=== PATIENT | female | born 1970 | race Caucasian/White ===

== ENCOUNTER → 2016-08-17 | Outpatient (CLI) | payer BC ==
--- NOTE | 2016-08-17 09:23 | CT ---
EXAMINATION TYPE: CT abdomen pelvis w con DATE OF EXAM: 08/17/2016 8:37 AM HISTORY: Patient has no complaints at time of service. Follow up study for history of cervical CA. CT DLP: 1633mGycm Automated Exposure Control for Dose Reduction was Utilized. CONTRAST: CT scan of the abdomen and pelvis is performed with oral and with IV Contrast, patient injected with 100 mL of Omnipaque 300. COMPARISON: CT abdomen pelvis November 11, 2015 FINDINGS: LUNG BASES: Some scarring or atelectatic change involving the right middle lobe near diaphragm is red emonstrated. LIVER/GB: Liver remains diffusely low dense consistent with fatty infiltration. PANCREAS: No significant abnormality is seen. SPLEEN: No significant abnormality is seen. ADRENALS: No significant abnormality is seen. KIDNEYS: No significant abnormality is seen. BOWEL: The oral contrast does not reach colonic level making evaluation slightly suboptimal. There is no suspicious small or large bowel dilatation seen. Normal-appearing appendix is seen from cecum. UTERUS/ADNEXA: Uterus is surgically absent. No new suspicious soft tissue mass is identified. There i s interval resolution of cystic lesion left adnexa/ovary consistent with resolved follicular cyst. Th ere is now 1.5 cm cystic change in right ovary on axial image 68 likely reflecting prominent follicle . LYMPH NODES: No greater than 1cm abdominal or pelvic lymph nodes are appreciated. OSSEOUS STRUCTURES: No significant abnormality is seen. OTHER: A few scattered pelvic phleboliths are redemonstrated. IMPRESSION: No new suspicious mass or adenopathy is seen to suggest neoplastic recurrence.
== END | disposition home or self-care (01) ==
LOC: RADCTMAIN 08:19
PROVIDERS: ATTEND Internal Medicine Hematology & Oncology
DX: C53.0 Malignant neoplasm of endocervix (principal)
CPT/HCPCS: 74177; Q9967

== ENCOUNTER → 2017-09-08 | Outpatient (CLI) | payer BC ==
--- NOTE | 2017-09-08 11:36 | CT ---
EXAMINATION TYPE: CT abdomen pelvis w con DATE OF EXAM: 09/08/2017 HISTORY: Endocervical carcinoma. CT DLP: 1633 mGycm Automated Exposure Control for Dose Reduction was Utilized. CONTRAST: CT scan of the abdomen and pelvis is performed with IV Contrast, patient injected with 100 mL of Omni paque 300. COMPARISON: 08/17/2016 FINDINGS: LUNG BASES: Minimal subpleural right middle lobe atelectasis and right lower lung medially atelectasi s are noted. No pulmonary masses are seen. LIVER/GB: Although the liver appears hypoattenuating diffusely does not meet diagnostic criteria for hepatic steatosis. Gallbladder is unremarkable. PANCREAS: No significant abnormality is seen. No ductal dilatation. SPLEEN: No significant abnormality is seen. No splenomegaly. ADRENALS: No significant abnormality is seen. No adrenal nodules. KIDNEYS: Kidneys enhance symmetrically. BOWEL: Bowel is nondilated. Appendix is within normal limits. UTERUS/ADNEXA: Follicular changes of the right ovary, small in size and on the prior exam of 08/17/2016. Left ovary is unremarkable. Uterus is surgically absent as is the cervix. Vaginal cuff is unremarkable. No new pel gildardo soft tissue mass or adenopathy is appreciated. LYMPH NODES: No greater than 1cm abdominal or pelvic lymph nodes are appreciated. OSSEOUS STRUCTURES: Minimal multilevel degenerative changes of the visualized thoracic or lumbar spin e are noted. IMPRESSION: No evidence of visceral metastasis, osseous metastasis or adenopathy within the abdomen o r pelvis.
== END | disposition home or self-care (01) ==
LOC: RADCTMAIN 07:29
PROVIDERS: ATTEND Internal Medicine Hematology & Oncology
DX: C53.0 Malignant neoplasm of endocervix (principal)
CPT/HCPCS: 74177; Q9967

== ENCOUNTER → 2018-02-21 | Outpatient (CLI) | payer BC ==
--- NOTE | 2018-02-21 13:29 | US ---
EXAMINATION TYPE: US venous doppler duplex LE RT DATE OF EXAM: 02/21/2018 1:15 PM COMPARISON: NONE CLINICAL HISTORY: Rt leg Pain M79.604. Right leg tingling, patient takes blood thinners SIDE PERFORMED: Right TECHNIQUE: The lower extremity deep venous system is examined utilizing real time linear array sonog lainey with graded compression, doppler sonography and color-flow sonography. VESSELS IMAGED: External Iliac Vein (EIV) Common Femoral Vein Deep Femoral Vein Greater Saphenous Vein * Femoral Vein Popliteal Vein Small Saphenous Vein * Proximal Calf Veins (* superficial vessels) Grayscale, color doppler, spectral doppler imaging performed of the deep veins of the right lower ext remity. There is normal flow, compressibility, vascular waveforms. Right Leg: Negative for DVT IMPRESSION: No sonographic evidence of deep venous thrombosis within the right lower extremity.
== END | disposition home or self-care (01) ==
LOC: RADUSWWP 12:43
PROVIDERS: ATTEND Pediatrics
DX: M79.604 Pain in right leg (principal)

== ENCOUNTER 2018-03-11 11:23 | Emergency (ER) | payer BC ==
[2018-03-11] MEDS ORDERED: METHOCARBAMOL 500 MG TAB PO STA (12:15)
[2018-03-11] MEDS ORDERED: KETOROLAC 30 MG/ML 1 ML VIAL IVP STA (12:15)
--- NOTE | 2018-03-11 12:19 | ED ---
Extremity Problem HPI - General Chief complaint: Extremity Problem,Nontraumatic Stated complaint: Hip to leg pain Time Seen by Provider: 03/11/18 12:06 Source: patient Mode of arrival: wheelchair Limitations: no limitations - History of Present Illness Initial comments: This is a 47-year-old female with a history of DVT on Zarrella toe who presents emergency department for left lower extremity pain. She states it started yesterday and has gradually worsened. She describes it as a burning and cramping sensation that starts in her left groin and then radiates down into her leg. She states that she did have a fall a few days ago where she stretched that leg to the side. She states that she's also been having some leg pain in the right leg. This is been going on for the last month. She is seen her primary doctor for it who started her on Neurontin however states that it has not helped. She states that the left leg is much worse than the right however. She denies any back pain however does have a history of sciatica. Also admits to some tingling in her fingertips at times. She denies any weakness or tingling in her lower extremity. She denies any other acute complaints. - Related Data Home Medications Medication Instructions Recorded Confirmed Acetaminophen Tab [Tylenol] 1,000 mg PO Q6HR PRN 12/31/15 03/11/18 Rivaroxaban [Xarelto] 20 mg PO HS 12/31/15 03/11/18 Gabapentin [Neurontin] 100 mg PO BID 03/11/18 03/11/18 Hydrochlorothiazide [Hydrodiuril] 25 mg PO DAILY 03/11/18 03/11/18 Pantoprazole Sodium [Protonix] 40 mg PO DAILY 03/11/18 03/11/18 Previous Rx's Medication Instructions Recorded traMADol HCL [Ultram] 50 mg PO TID 3 Days #9 tab 03/11/18 Allergies Allergy/AdvReac Type Severity Reaction Status Date / Time hydrocodone bitartrate AdvReac Nausea & Verified 03/11/18 12:00 [From Vicodin] Vomiting Review of Systems ROS Statement: Those systems with pertinent positive or pertinent negative responses have been documented in the HPI. ROS Other: All systems not noted in ROS Statement are negative. Past Medical History Past Medical History: GERD/Reflux, Pulmonary Embolus (PE), Thyroid Disorder Additional Past Medical History / Comment(s): DVT, states clotting disorder - does not know name History of Any Multi-Drug Resistant Organisms: None Reported Past Surgical History: Hysterectomy Additional Past Surgical History / Comment(s): ganglion cyst removed from right wrist Past Anesthesia/Blood Transfusion Reactions: No Reported Reaction Past Psychological History: No Psychological Hx Reported Smoking Status: Never smoker Past Alcohol Use History: Occasional Past Drug Use History: None Reported - Past Family History Father Additional Family Medical History / Comment(s): in MVA - no medical problems Mother Family Medical History: Congestive Heart Failure (CHF), COPD, Diabetes Mellitus Additional Family Medical History / Comment(s): has pacer - had heart block. short gut syndrom General Exam - General Exam Comments Initial Comments: Constitutional: [Awake alert] appears uncomfortable Head: [Normocephalic atraumatic] Eyes: [no conjunctival injection] [No scleral icterus] [EOMI] Neck: [No JVD] [Supple] Heart: [Regular rate rhythm] [normal S1-S2] [no murmurs] Lungs: [Clear to auscultation bilaterally] [No wheezing] [No rales] Abdomen: [Soft] [nondistended] [nontender] Extremities: [Non edematous] [DP pulses intact] [Radial pulses intact], femoral pulses intact bilaterally, patient has tenderness to palpation the left inguinal region and along the medial left thigh. Neurovascularly intact distally. No back pain Neuro: [A&Ox3] [No focal neurologic deficits] Psych: [Appropriate mood and affect] Limitations: no limitations Course Vital Signs 03/11/18 11:47 Temperature 97.7 F Pulse Rate 83 Respiratory 18 Rate Blood Pressure 123/87 O2 Sat by Pulse 95 Oximetry Medical Decision Making - Medical Decision Making This is a 47-year-old female who presents emergency department for left lower extremity pain. The patient had Dopplers and x-rays performed that were unremarkable. Patient's pain was improved after a tramadol emergency department. At this time I feel the patient's pain is likely neuropathic in origin however she needs further workup through her primary doctor. Told to return the emergency Department should worsening or changing symptoms. Otherwise she'll be given tramadol for home and told to follow-up with her primary doctor for further testing such as an MRI or an EMG. All questions were answered. - Lab Data Result diagrams: 03/11/18 12:25 03/11/18 12:25 Lab Results 03/11/18 03/11/18 03/11/18 Range/Units 12:25 12:25 12:25 WBC 6.1 (3.8-10.6) k/uL RBC 4.51 (3.80-5.40) m/uL Hgb 13.5 (11.4-16.0) gm/dL Hct 42.1 (34.0-46.0) % MCV 93.3 (80.0-100.0) fL MCH 30.0 (25.0-35.0) pg MCHC 32.1 (31.0-37.0) g/dL RDW 13.0 (11.5-15.5) % Plt Count 296 (150-450) k/uL Neutrophils % 57 % Lymphocytes % 30 % Monocytes % 8 % Eosinophils % 2 % Basophils % 1 % Neutrophils # 3.5 (1.3-7.7) k/uL Lymphocytes # 1.8 (1.0-4.8) k/uL Monocytes # 0.5 (0-1.0) k/uL Eosinophils # 0.1 (0-0.7) k/uL Basophils # 0.0 (0-0.2) k/uL PT 9.6 (9.0-12.0) sec INR 1.0 (<1.2) APTT 24.4 (22.0-30.0) sec Sodium 140 (137-145) mmol/L Potassium 3.6 (3.5-5.1) mmol/L Chloride 106 (98-107) mmol/L Carbon Dioxide 27 (22-30) mmol/L Anion Gap 7 mmol/L BUN 15 (7-17) mg/dL Creatinine 0.70 (0.52-1.04) mg/dL Est GFR (CKD-EPI)AfAm >90 (>60 ml/min/1.73 sqM) Est GFR (CKD-EPI)NonAf >90 (>60 ml/min/1.73 sqM) Glucose 91 (74-99) mg/dL Calcium 9.4 (8.4-10.2) mg/dL Total Bilirubin 0.4 (0.2-1.3) mg/dL AST 32 (14-36) U/L ALT 54 H (9-52) U/L Alkaline Phosphatase 71 (38-126) U/L Total Protein 7.0 (6.3-8.2) g/dL Albumin 4.0 (3.5-5.0) g/dL Disposition Clinical Impression: Leg pain Disposition: HOME SELF-CARE Condition: Stable Instructions: Peripheral Neuropathy (ED) Prescriptions: traMADol HCL [Ultram] 50 mg PO TID 3 Days #9 tab Is patient prescribed a controlled substance at d/c from ED?: Yes When asked, does pt state using other controlled substances?: No If prescribed controlled substance>3 days was MAPS reviewed?: Prescribed <3 Days If opioid is for acute pain is fill amount 7 days or less?: Yes If Rx opioid, was Start Talking consent form obtained?: No Referrals: Yang Niño MD [Primary Care Provider] - 1-2 days
[2018-03-11 12:37] LABS: Basophils % (A) 1 %; Eosinophils # (A) 0.1 k/uL (0-0.7); Eosinophils % (A) 2 %; HCT 42.1 % (34.0-46.0); HGB 13.5 gm/dL (11.4-16.0); Lymphocytes # (A) 1.8 k/uL (1.0-4.8); Lymphocytes % (A) 30 %; MCHC 32.1 g/dL (31.0-37.0); MCV 93.3 fL (80.0-100.0); Mean Platelet Volume 6.6; Monocytes # (A) 0.5 k/uL (0-1.0); Monocytes % (A) 8 %; Neutrophils # (A) 3.5 k/uL (1.3-7.7); Neutrophils % (A) 57 %; Platelet Count 296 k/uL (150-450); RBC 4.51 m/uL (3.80-5.40); WBC 6.1 k/uL (3.8-10.6)
[2018-03-11 12:46] LABS: Partial Thromboplastin Time 24.4 sec (22.0-30.0); Prothrombin Time 9.6 sec (9.0-12.0)
[2018-03-11 12:52] LABS: ALT 54 U/L (9-52); AST 32 U/L (14-36); Alkaline Phosphatase 71 U/L (38-126); Anion Gap 7 mmol/L; Blood Urea Nitrogen 15 mg/dL (7-17); Calcium 9.4 mg/dL (8.4-10.2); Carbon Dioxide 27 mmol/L (22-30); Chloride 106 mmol/L (98-107); Glucose 91 mg/dL (74-99); Potassium 3.6 mmol/L (3.5-5.1); Sodium 140 mmol/L (137-145); Total Bilirubin 0.4 mg/dL (0.2-1.3)
--- NOTE | 2018-03-11 12:54 | XR ---
EXAMINATION TYPE: XR Hip LT and AP Pelvis DATE OF EXAM: 03/11/2018 COMPARISON: NONE HISTORY: Pain TECHNIQUE: A single AP view of the pelvis is obtained. Two views of the left hip are obtained. FINDINGS: There is no acute fracture/dislocation evident in the pelvis. Mild concentric narrowing of the hip joint bilaterally. There is mild disc sclerosis and arthritic change involving the SI joints bilaterally. No erosive changes. There is a intraosseous lesion involving the femoral neck of the ri ght femur may represent bone infarct or chondroid lesion measuring 2.5 cm. Calcifications in the pelvis are likely vascular. IMPRESSION: 1. Mild arthritic change involving the hip with no erosive changes. 2. Mild arthropathy of the SI joint. 3. Intraosseous lesion of the right femoral neck suggestive of bone infarct or chondroid lesion. Jcarlos mmend follow-up bone scan.
--- NOTE | 2018-03-11 14:03 | US ---
EXAMINATION TYPE: US venous doppler duplex LE BI DATE OF EXAM: 03/11/2018 12:16 PM COMPARISON: US CLINICAL HISTORY: b/l LE pain, h/o dvt. Leg pain, more on left SIDE PERFORMED: Bilateral TECHNIQUE: The lower extremity deep venous system is examined utilizing real time linear array sonog lainey with graded compression, doppler sonography and color-flow sonography. VESSELS IMAGED: External Iliac Vein (EIV) Common Femoral Vein Deep Femoral Vein Greater Saphenous Vein * Femoral Vein Popliteal Vein Small Saphenous Vein * Proximal Calf Veins (* superficial vessels) Grayscale, color doppler, spectral doppler imaging performed of the deep veins of the lower extremiti es. Right Leg: Negative for DVT Left Leg: Negative for DVT IMPRESSION:
[2018-03-11] MEDS ORDERED: traMADol 50 MG TAB PO STA (14:15)
[2018-03-11 14:41] VITALS: BP 114/68; PULSE 74; RESP 16; TEMP 97.3
== END 2018-03-11 14:48 | disposition home or self-care (01) ==
LOC: EC 11:23
DX: M79.605 Pain in left leg (principal); M25.552 Pain in left hip; M54.30 Sciatica, unspecified side; K21.9 Gastro-esophageal reflux disease without esophagitis; Z86.718 Personal history of other venous thrombosis and embolism; Z86.711 Personal history of pulmonary embolism; Z79.01 Long term (current) use of anticoagulants; Z79.899 Other long term (current) drug therapy; Z88.5 Allergy status to narcotic agent
CPT/HCPCS: 36415; 80053; 85025; 85610; 85730; 73502; 93970; 99284; 96374; J1885

== ENCOUNTER → 2018-03-22 | Outpatient (CLI) | payer BC ==
--- NOTE | 2018-03-24 13:09 | MM ---
Reason for exam: screening (asymptomatic). Last mammogram was performed 3 years and 10 months ago. History: Patient is postmenopausal, has history of other cancer at age 42, and is nulliparous. Family history of breast cancer in maternal aunt at age 60 and breast cancer in maternal cousin at age 43. Physical Findings: A clinical breast exam by your physician is recommended on an annual basis and results should be correlated with mammographic findings. MG 3D Screening Mammo W/Cad Bilateral CC and MLO view(s) were taken. Prior study comparison: May 24, 2014, bilateral MG screening mammo w CAD. There are scattered fibroglandular densities. There is chronic nodularity in the left breast. No significant changes when compared with prior studies. ASSESSMENT: Negative, BI-RAD 1 RECOMMENDATION: Routine screening mammogram of both breasts in 1 year.
== END | disposition home or self-care (01) ==
LOC: RADMAMWWP 08:01
PROVIDERS: ATTEND Pediatrics
DX: Z12.31 Encounter for screening mammogram for malignant neoplasm of breast (principal)
CPT/HCPCS: 77063; 77067

== ENCOUNTER → 2018-03-22 | Outpatient (CLI) | payer BC ==
--- NOTE | 2018-03-22 15:17 | NM ---
EXAMINATION TYPE: NM bone/joint limited DATE OF EXAM: 03/22/2018 COMPARISON: Plain film 03/11/2018 CT abdomen pelvis 03/02/[address] 09/08/2017 HISTORY: Right hip pain TECHNIQUE: After the intravenous administration of 24.3 mCi Tc 99m MDP. Images acquired 3 hours pos t injection. Multiple views of are submitted. There is no abnormal uptake within the visualized osseous structures to suggest acute process. The le liang involving the right femoral neck is present on CT abdomen pelvis exam dated 03/02/2013 and may giordano ve involuted slightly in the interval. Minimal focal increased uptake identified at this level on the posterior image of the proximal right femur. Uptake in the feet, ankles, knees, shoulders, sternoclavicular joints is likely degenerative. No vidhi tional suspicious abnormal uptake is evident. IMPRESSION: Lesion in the proximal right femur has been present for 5 years as described.
== END | disposition home or self-care (01) ==
LOC: RADNMMAIN 10:45
PROVIDERS: ATTEND Pediatrics
DX: L98.9 Disorder of the skin and subcutaneous tissue, unspecified (principal)
CPT/HCPCS: 78300; A9503

== ENCOUNTER → 2018-05-06 | Outpatient (CLI) | payer OTHER ==
--- NOTE | 2018-05-06 10:28 | CT ---
EXAMINATION TYPE: CT lumbar spine wo con DATE OF EXAM: 05/06/2018 COMPARISON: None HISTORY: Patient complains of chronic low back pain with radiation bilaterally to the legs and left l eg weakness. CT DLP: 1301.7 mGycm CONTRAST: None TECHNIQUE: CT of the lumbar spine is performed on a spiral scan at 3 mm thick sections. Reconstructed images are performed in the coronal and sagittal planes. FINDINGS: T12-L1: No focal disc herniation or significant disc bulge is evident. No spinal canal stenosis or neural foraminal stenosis is present. L1-L2: No focal disc herniation or significant disc bulge is evident. No spinal canal stenosis or n eural foraminal stenosis is present L2-L3: No focal disc herniation or significant disc bulge is evident. No spinal canal stenosis or n eural foraminal stenosis is present L3-L4: Broad-based disc bulge has moderate anterior thecal sac flattening. No AP spinal canal stenosi s is present. Neural foramen and mild narrowing. L4-L5: Broad-based disc bulge has mild anterior thecal sac contact. Facet hypertrophy and ligamentum flavum laxity has posterior lateral thecal sac compression. No AP spinal canal stenosis is present. S ome lateral canal narrowing may be present. Mild bilateral foraminal narrowing is present. L5-S1: There is a large broad-based disc bulge extending with moderate anterior thecal sac compressio n. This is slightly greater into the left paracentral region. This is contributing to spinal canal na rrowing with an AP diameter of 1.1 cm. Facet hypertrophy and ligamentum flavum laxity is present cont ributing to some canal narrowing through this level. Neural foramen are patent. Vertebral alignment appears normal. Vertebral body heights are preserved. Disc heights are preserved. IMPRESSION: 1. Disc bulge appears asymmetric and greater into the left paracentral region at the L5-S1 level cont ributing to spinal canal narrowing. 2. Mild bilateral foraminal narrowing L3-4 L4-5 secondary to disc bulging. 3. Broad-based disc bulging L3-4 with moderate anterior thecal sac flattening without stenosis and mi ld anterior thecal sac flattening L4-5 without spinal canal stenosis.
== END | disposition home or self-care (01) ==
LOC: RADCTMAIN 07:27
PROVIDERS: ATTEND Nurse Practitioner Family
DX: M48.061 Spinal stenosis, lumbar region without neurogenic claudication (principal); M99.73 Connective tissue and disc stenosis of intervertebral foramina of lumbar region; M51.17 Intervertebral disc disorders with radiculopathy, lumbosacral region
CPT/HCPCS: 72131

== ENCOUNTER → 2018-05-27 | Outpatient (CLI) | payer OTHER ==
--- NOTE | 2018-05-27 12:57 | CT ---
EXAMINATION TYPE: CT brain w con DATE OF EXAM: 05/27/2018 COMPARISON: 07/18/2013 HISTORY: Patient complains of difficulty walking. CT DLP: 1019 mGycm Automated Exposure Control for Dose Reduction was Utilized. TECHNIQUE: CT scan of the head is performed with IV contrast.,CT scan of the head is performed withou t and with with IV Contrast, patient injected with 100 mL of Isovue 300. CLINICAL HISTORY: Balance difficulties COMPARISON: None. FINDINGS: There is no acute intracranial hemorrhage or midline shift. The ventricles and sulci are wi thin normal limits in size. Postcontrast images show no suspicious enhancing intraparenchymal mass. T he globes are intact and the visualized sinuses are clear. Small osteoma within the left ethmoid air cells. IMPRESSION: Negative contrast enhanced head CT exam. If symptoms persist consider MRI.
== END | disposition home or self-care (01) ==
LOC: RADCTMAIN 11:53
PROVIDERS: ATTEND Pediatrics
DX: R26.89 Other abnormalities of gait and mobility (principal)
CPT/HCPCS: 70460; Q9967

== ENCOUNTER → 2018-12-19 | Outpatient (CLI) | payer OTHER ==
--- NOTE | 2018-12-20 03:36 | CT ---
EXAMINATION TYPE: CT abdomen pelvis w con DATE OF EXAM: 12/19/2018 COMPARISON: 08/31/2017 HISTORY: 48-year-old female annual follow-up. Hx malignant neoplasm endocervix [id number]. Prior hyste rectomy. TECHNIQUE: Contiguous axial scanning of the abdomen and pelvis following administration of 100 ml Iso beck 300 IV contrast. Delayed images through the kidneys and coronal/sagittal reconstructions perform ed. CT DLP: 2137.50 mGycm Automated exposure control for dose reduction was used. FINDINGS: Heart normal size without pericardial effusion. Some strandy areas of atelectasis or scarring are pre sent in the medial basilar lower lobes. Liver upper limits of normal in size at 17.3 cm. No focal lesions seen. No biliary ductal dilatation. Portal venous system is patent. Gallbladder, adrenal glands, spleen, and pancreas appear within normal limits. No significant excreti on of contrast into the renal collecting systems on the delayed kidney images. Findings should be cor related with patient's kidney function. No dilated small bowel, free fluid, or free air. No mesenteric or retroperitoneal lymphadenopathy. Mild to moderate stool burden. No pericolonic inflammatory change. Bladder is urine distended. Pelvic phleboliths redemonstrated. Patient status post hysterectomy. No a bnormal thickening seen along the vaginal cuff. No abnormal fluid collection in the pelvis. Both ovar ies are again visualized, stable in configuration from prior exam. No pelvic lymphadenopathy. Bones: Stable focal sclerosis posterior right intertrochanteric region dating back to at least 08/17/19 17 compatible with a benign etiology. Facet arthropathy lower lumbar spine. No osseous destructive pr ocess. IMPRESSION: 1. STATUS POST HYSTERECTOMY. NO SUSPICIOUS MASS OR LYMPHADENOPATHY TO SUGGEST DISEASE RECURRENCE. 2. NO CONTRAST SEEN WITHIN THE COLLECTING SYSTEMS ON THE DELAYED KIDNEY IMAGES. CORRELATE WITH KIDNEY FUNCTION TO EXCLUDE ACUTE KIDNEY INJURY/CONTRAST NEPHROPATHY.
== END | disposition home or self-care (01) ==
LOC: RADCTMAIN 13:52
PROVIDERS: ATTEND Internal Medicine Hematology & Oncology
DX: C53.0 Malignant neoplasm of endocervix (principal); Z90.710 Acquired absence of both cervix and uterus
CPT/HCPCS: 74177; Q9967

== ENCOUNTER → 2019-01-28 | Outpatient (CLI) | payer OTHER ==
--- NOTE | 2019-01-28 14:35 | NM ---
EXAMINATION TYPE: NM hepatobiliary w EF DATE OF EXAM: 01/28/2019 COMPARISON: NONE HISTORY: TECHNIQUE: After the intravenous administration of 4.63 mCi Tc 99m Mebrofenin hepatobiliary scintigra phy is performed. Immediate images post injection. FINDINGS: There is satisfactory initial accumulation of tracer by the liver. The gallbladder is visualized wit hin 32 minutes. The small bowel activity is noted within 10 minutes. At one hour 8 ounces of oral e nsure plus is given to mimic CCK and gallbladder ejection fraction is calculated at 69 %, in the norm al range. Therefore there is no scintigraphic evidence of cystic or common bile duct obstruction to suggest acute cholecystitis or gallbladder dyskinesia. No evidence of focal liver defect. IMPRESSION: Normal exam
== END | disposition home or self-care (01) ==
LOC: RADNMMAIN 08:46
PROVIDERS: ATTEND Pediatrics
DX: R10.11 Right upper quadrant pain (principal)
CPT/HCPCS: 78226; A9537

== ENCOUNTER 2019-01-30 08:11 | Emergency (ER) | payer OTHER ==
[2019-01-30 08:17] VITALS: BP 130/93; PULSE 76; RESP 18; TEMP 97.7
--- NOTE | 2019-01-30 08:27 | ED ---
General Adult HPI - General Chief complaint: Skin/Abscess/Foreign Body Stated complaint: varicose vein Time Seen by Provider: 01/30/19 08:12 Source: patient, EMS Mode of arrival: EMS Limitations: no limitations - History of Present Illness Initial comments: Dictation was produced using [employer] dictation software. please excuse any gramm atical, word or spelling errors. Chief Complaint: 48-year-old female with past medical history of PE, thyroid disorder, GERD disease presents with bleeding from her left lower extremity. History of Present Illness: She is a 40-year-old female she was brought in by EMS for spontaneous bleeding at the left lower extremity. Patient denies any history of varicose veins. She states that she was in the shower today. This child which she noted significant bleeding coming from her left lower extremity. She states that it was significant bleeding causing large piles of blood in her bathroom. She states that the bleeding was squirted into the wall. EMS was called and patient was brought to the emergency department. EMS arrived on scene and placed a gauze dressing over the left ankle area. The report that there was no bleeding while in route to the emergency department. Patient is on Xarelto for DVT and PE prophylaxis for a clotting disorder that patient is not sure what the name of it is. The ROS documented in this emergency department record has been reviewed and confirmed by me. Those systems with pertinent positive or negative responses have been documented in the HPI. All other systems are other negative and/or noncontributory. PHYSICAL EXAM: General Impression: Alert and oriented x3, not in acute distress HEENT: Normocephalic atraumatic, extra-ocular movements intact, pupils equal and reactive to light bilaterally, mucous membranes moist. Cardiovascular: Heart regular rate and rhythm, S1&S2 audible, no murmurs, rubs or gallops Chest: Lungs clear to auscultation bilaterally, no rhonchi, no wheeze, no rales Abdomen: Bowel sounds present, abdomen soft, non-tender, non-distended, no organomegaly Musculoskeletal: Pulses present and equal in all extremities, no peripheral edema Motor: no focal deficits noted Neurological: CN II-XII grossly intact, no focal motor or sensory deficits noted Skin: Intact with no visualized rashes, small pinpoint scab 3 cm superior to the left lateral malleolus, lower extremity varicosities bilateral feet. Psych: Normal affect and mood ED course: 48-year-old female presents with bleeding varicose vein. Vital signs upon arrival are within acceptable limits. Dressingby EMS was removed and leg was evaluated. No active bleeding at this time. Dry blood was cleaned using sterile jelly. Pinpoint scab was noted over the left lateral distal leg which is presumed to be the initial source of bleeding. No active hemorrhaging at this time. Patient suggests that there was significant bleeding at home. Laboratory evaluation obtained. Patient is emergency departments and with her at baseline. She is well-appearing. Laboratory evaluation unremarkable. Patient has normal hemoglobin and hematocrit. Patient and will try bedside without any complications. No further bleeding. Patient clear for discharge. - Related Data Home Medications Medication Instructions Recorded Confirmed Rivaroxaban [Xarelto] 20 mg PO HS 12/31/15 01/30/19 Hydrochlorothiazide [Hydrodiuril] 25 mg PO DAILY 03/11/18 01/30/19 Pantoprazole Sodium [Protonix] 40 mg PO DAILY 03/11/18 01/30/19 Allopurinol [Zyloprim] 100 mg PO DAILY 01/30/19 01/30/19 Gabapentin [Neurontin] 300 mg PO BID 01/30/19 01/30/19 Hydroxychloroquine Sulfate 200 mg PO BID 01/30/19 01/30/19 [Plaquenil] Indomethacin [Indocin] 50 mg PO TID PRN 01/30/19 01/30/19 Levothyroxine Sodium [Synthroid] 150 mcg PO DAILY 01/30/19 01/30/19 Milnacipran HCl [Savella] 50 mg PO BID 01/30/19 01/30/19 Allergies Allergy/AdvReac Type Severity Reaction Status Date / Time hydrocodone bitartrate AdvReac Nausea & Verified 01/30/19 09:02 [From Vicodin] Vomiting Review of Systems ROS Statement: Those systems with pertinent positive or pertinent negative responses have been documented in the HPI. ROS Other: All systems not noted in ROS Statement are negative. Past Medical History Past Medical History: GERD/Reflux, Pulmonary Embolus (PE), Thyroid Disorder Additional Past Medical History / Comment(s): DVT, states clotting disorder - do es not know name History of Any Multi-Drug Resistant Organisms: None Reported Past Surgical History: Hysterectomy Additional Past Surgical History / Comment(s): ganglion cyst removed from right wrist Past Anesthesia/Blood Transfusion Reactions: No Reported Reaction Past Psychological History: No Psychological Hx Reported Smoking Status: Never smoker Past Alcohol Use History: Occasional Past Drug Use History: None Reported - Past Family History Father Additional Family Medical History / Comment(s): in MVA - no medical problems Mother Family Medical History: Congestive Heart Failure (CHF), COPD, Diabetes Mellitus Additional Family Medical History / Comment(s): has pacer - had heart block. short gut syndrom General Exam Limitations: no limitations Course Vital Signs 01/30/19 08:14 Temperature 97.7 F Pulse Rate 76 Respiratory 18 Rate Blood Pressure 130/93 O2 Sat by Pulse 98 Oximetry Medical Decision Making - Lab Data Result diagrams: 01/30/19 08:32 Lab Results 01/30/19 01/30/19 Range/Units 08:32 08:32 WBC 4.9 (3.8-10.6) k/uL RBC 4.45 (3.80-5.40) m/uL Hgb 13.5 (11.4-16.0) gm/dL Hct 40.6 (34.0-46.0) % MCV 91.3 (80.0-100.0) fL MCH 30.3 (25.0-35.0) pg MCHC 33.2 (31.0-37.0) g/dL RDW 13.0 (11.5-15.5) % Plt Count 335 (150-450) k/uL Neutrophils % 67 % Lymphocytes % 23 % Monocytes % 6 % Eosinophils % 2 % Basophils % 0 % Neutrophils # 3.2 (1.3-7.7) k/uL Lymphocytes # 1.1 (1.0-4.8) k/uL Monocytes # 0.3 (0-1.0) k/uL Eosinophils # 0.1 (0-0.7) k/uL Basophils # 0.0 (0-0.2) k/uL PT 11.5 (9.0-12.0) sec INR 1.1 (<1.2) Disposition Clinical Impression: Bleeding from varicose vein Disposition: HOME SELF-CARE Condition: Good Instructions (If sedation given, give patient instructions): Stasis Dermatitis (ED) Is patient prescribed a controlled substance at d/c from ED?: No Referrals: Yang Niño MD [Primary Care Provider] - 1-2 days Time of Disposition: 09:23
[2019-01-30 08:52] LABS: INR 1.1 (<1.2); Prothrombin Time 11.5 sec (9.0-12.0)
[2019-01-30 08:55] LABS: Basophils % (A) 0 %; Eosinophils # (A) 0.1 k/uL (0-0.7); Eosinophils % (A) 2 %; HCT 40.6 % (34.0-46.0); HGB 13.5 gm/dL (11.4-16.0); Lymphocytes # (A) 1.1 k/uL (1.0-4.8); Lymphocytes % (A) 23 %; MCH 30.3 pg (25.0-35.0); MCHC 33.2 g/dL (31.0-37.0); MCV 91.3 fL (80.0-100.0); Mean Platelet Volume 6.8; Monocytes # (A) 0.3 k/uL (0-1.0); Monocytes % (A) 6 %; Neutrophils # (A) 3.2 k/uL (1.3-7.7); Neutrophils % (A) 67 %; Platelet Count 335 k/uL (150-450); RBC 4.45 m/uL (3.80-5.40); WBC 4.9 k/uL (3.8-10.6)
== END 2019-01-30 09:56 | disposition home or self-care (01) ==
LOC: EC 08:11
DX: I83.892 Varicose veins of left lower extremity with other complications (principal); K21.9 Gastro-esophageal reflux disease without esophagitis; E07.9 Disorder of thyroid, unspecified; Z86.711 Personal history of pulmonary embolism; Z86.718 Personal history of other venous thrombosis and embolism; Z79.01 Long term (current) use of anticoagulants; Z79.890 Hormone replacement therapy; Z79.899 Other long term (current) drug therapy; Z88.5 Allergy status to narcotic agent
CPT/HCPCS: 36415; 85025; 85610; 99283

== ENCOUNTER → 2019-02-07 | Outpatient (CLI) | payer OTHER ==
--- NOTE | 2019-02-08 13:14 | MM ---
Reason for exam: clinical finding. Last mammogram was performed 11 months ago. History: Patient is postmenopausal, has history of other cancer at age 42, and is nulliparous. Family history of breast cancer in maternal aunt at age 60 and breast cancer in maternal cousin at age 43. Physical Findings: Nurse did not find any significant physical abnormalities on exam. (nurse mg). MG 3D Diag Mammo W/Cad R[facility]Y Bilateral CC and MLO view(s) were taken. Prior study comparison: March 22, 2018, bilateral MG 3d screening mammo w/cad. May 24, 2014, bilateral MG screening mammo w CAD. There are scattered fibroglandular densities. There is a benign-appearing right breast calcification. No suspicious abnormality. ASSESSMENT: Incomplete: need additional imaging evaluation, BI-RAD 0 RECOMMENDATION: Ultrasound of the right breast. Ultrasound of the right retroareolar. Patient was given results on 02/07/19.
--- NOTE | 2019-02-08 13:22 | USB ---
History: Patient is postmenopausal, has history of other cancer at age 42, and is nulliparous. Family history of breast cancer in maternal aunt at age 60 and breast cancer in maternal cousin at age 43. US Breast Limited RT Right limited breast ultrasound including focal area of concern, retroareolar and axilla demonstrates no cystic or solid lesion seen. No ductal dilitation. No suspicious finding. ASSESSMENT: Negative, BI-RAD 1 RECOMMENDATION: Surgical consultation of the right breast. Surgical cunsultation with ductal exploration is recommended for this patient with right bloody nipple discharge. Called Dr. Niño with mammographic findings and has scheduled an appointment for the patient for 02/16/19 at 2:15pm with Dr. Ho. For consultation only. PRELIMINARY REPORT CALLED AND FAXED TO DR. HO ON 02/07/2019 Patient was given results on 02/07/19.
== END | disposition home or self-care (01) ==
LOC: RADMAMWWP 07:40
PROVIDERS: ATTEND Pediatrics
DX: R92.8 Other abnormal and inconclusive findings on diagnostic imaging of breast (principal); N64.4 Mastodynia
CPT/HCPCS: 77066; 76642; G0279; 77062

== ENCOUNTER → 2020-01-04 | Outpatient (CLI) | payer BC, OTHER | END | disposition home or self-care (01) | LOC: LABWHC1 13:39 | PROVIDERS: ATTEND Otolaryngology | DX: R43.8 Other disturbances of smell and taste (principal) | CPT/HCPCS: 36415; 86769 ==

== ENCOUNTER → 2020-01-09 | Outpatient (CLI) | payer BC, OTHER ==
[2020-01-09 15:43] LABS: HGB 13.5 gm/dL (11.4-16.0); MCHC 32.2 g/dL (31.0-37.0); MCV 93.2 fL (80.0-100.0); Mean Platelet Volume 7.2; Platelet Count 340 k/uL (150-450); RDW 12.7 % (11.5-15.5); WBC 5.2 k/uL (3.8-10.6)
[2020-01-09 23:51] LABS: Albumin 4.3 g/dL (3.80-4.90); Albumin/Globulin Ratio 1.72 (1.60-3.17); Anion Gap 9.2 mmol/L (4.00-12.00); BUN/Creat Ratio 12.22 Ratio (12.00-20.00); C Reactive Protein 1.2 mg/dL (0.0-0.8); Calcium 9.2 mg/dL (8.7-10.3); Carbon Dioxide 29.8 mmol/L (21.6-31.8); Globulin 2.5 g/dL (1.6-3.3); Non-African American GFR(CKD) 75.1 (60.0-200.0); Potassium 3.8 mmol/L (3.5-5.5); Total Bilirubin 0.2 mg/dL (0.3-1.2); Total Protein 6.8 g/dL (6.2-8.2)
[2020-01-10 03:55] LABS: Erythrocyte Sedimentation Rate 21 mm/Hr (0-20)
[2020-01-10 07:44] LABS: Gliadin AB IgA, Deaminated NEGATIVE (NEGATIVE); Gliadin AB IgA, Unit 9.4 U/mL; Gliadin AB IgG, Deaminated NEGATIVE (NEGATIVE)
== END | disposition home or self-care (01) ==
LOC: LABWHC1 13:23
PROVIDERS: ATTEND Nurse Practitioner
DX: R19.7 Diarrhea, unspecified (principal)
CPT/HCPCS: 36415; 80053; 83516; 83630; 83993; 85027; 85652; 86140; 87045; 87046; 87328; 87329

== ENCOUNTER → 2020-01-09 | Outpatient (CLI) | payer BC, OTHER ==
--- NOTE | 2020-01-09 13:22 | XR ---
EXAMINATION TYPE: XR chest 2V DATE OF EXAM: 01/09/2020 COMPARISON: Chest x-ray 12/31/2015 HISTORY: Chest pain TECHNIQUE: Frontal and lateral views of the chest are obtained. FINDINGS: There is no pleural effusion or pneumothorax seen. Some probable subsegmental atelectatic changes are present in the substernal location seen best on the lateral exam. The cardiac silhouette size is within normal limits. The osseous structures are intact. There are overlying cardiac leads . IMPRESSION: Some minimal subsegmental atelectatic changes are suspected, follow-up as indicated.
--- NOTE | 2020-01-10 16:00 | ECHOF ---
Referral Reason:R07.9 chest pain MEASUREMENTS -------- HEIGHT: 165.1 cm WEIGHT: 122.9 kg BP: IVSd: 1.2 cm (0.6 - 1.1) LVIDd: 3.9 cm (3.9 - 5.3) LVPWd: 1.5 cm (0.6 - 1.1) IVSs: 1.5 cm LVIDs: 3.0 cm LVPWs: 1.4 cm LA Diam: 2.9 cm (2.7 - 3.8) LAESV Index (A-L): 17.49 ml/m Ao Diam: 3.0 cm (2.0 - 3.7) AV Cusp: 2.1 cm (1.5 - 2.6) LA Diam: 3.4 cm (2.7 - 3.8) MV EXCURSION: 17.354 mm (> 18.000) MV EF SLOPE: 80 mm/s (70 - 150) EPSS: 0.3 cm MV E Anoop: 0.53 m/s MV DecT: 210 ms MV A Anoop: 0.85 m/s MV E/A Ratio: 0.62 RAP: 5.00 mmHg RVSP: 18.84 mmHg FINDINGS -------- Sinus rhythm. This was a technically adequate study. The left ventricular size is normal. There is mild concentric left ventricular hypertrophy. Overa ll left ventricular systolic function is low-normal with, an EF between 50 - 55 %. The right ventricle is normal in size. The left atrial size is normal. The right atrial size is normal. There is mild aortic valve sclerosis. There is no evidence of aortic regurgitation. Mild mitral regurgitation is present. Mild tricuspid regurgitation present. Right ventricular systolic pressure is normal at < 35 mmHg. The pulmonic valve was not well visualized. The aortic root size is normal. There is no pericardial effusion. CONCLUSIONS -------- 1. Sinus rhythm. 2. This was a technically adequate study. 3. The left ventricular size is normal. 4. There is mild concentric left ventricular hypertrophy. 5. Overall left ventricular systolic function is low-normal with, an EF between 50 - 55 %. 6. The right ventricle is normal in size. 7. The left atrial size is normal. 8. The right atrial size is normal. 9. There is mild aortic valve sclerosis. 10. Mild mitral regurgitation is present. 11. Mild tricuspid regurgitation present. 12. Right ventricular systolic pressure is normal at < 35 mmHg. 13. The pulmonic valve was not well visualized. 14. The aortic root size is normal. 15. There is no pericardial effusion. PERSONAL CARE HOME ADMINISTRATOR: Blank Way RDCS
--- NOTE | 2020-01-16 14:18 | HM ---
HOLTER MONITOR REPORT HOLTER MONITOR: The patient was monitored for 72 hours. The baseline rhythm is a sinus mechanism with normal conduction, the average rate is 94 beats per minute, minimum 66, maximum 137 beats per minute. Ventricular ectopic activity was present in form of rare single PVCs. Supraventricular ectopic activity was present form of rare single PACs. No symptoms were reported. CONCLUSION: 1. Sinus mechanism baseline rhythm. 2. Rare ventricular ectopic activity. 3. Rare supraventricular ectopic activity. 4. No symptoms were reported. MMODL / ALDENN: [id number] /
== END | disposition home or self-care (01) ==
LOC: RADECHMAIN 12:25
PROVIDERS: ATTEND Pediatrics
DX: R07.9 Chest pain, unspecified (principal); I08.3 Combined rheumatic disorders of mitral, aortic and tricuspid valves
CPT/HCPCS: 71046; 93225; 93226; 93306

== ENCOUNTER 2020-03-12 07:28 | Day surgery (SDC) | payer BC, OTHER ==
[2020-03-07 14:36] VITALS: BMI 46.0
[2020-03-12] MEDS ORDERED: LIDOCAINE 1% (10MG/ML) FOR IV START INTRADERMA PRN (08:21)
[2020-03-12] MEDS ORDERED: LACTATED RINGERS 1,000 ML IV SCH (08:21)
[2020-03-12 08:30] VITALS: TEMP 98.1
[2020-03-12] MEDS ORDERED: PROPOFOL 10 MG/ML 20 ML VIAL IV ONE (09:09)
--- NOTE | 2020-03-12 10:30 | P.PCN ---
Date of Procedure: 03/12/20 Description of Procedure: BRIEF HISTORY: Patient is a 49-year-old female presenting for evaluation of diarrhea with colonoscopy. Patient has chronic diarrhea worsened recently. Does have a familial history of inflammatory bowel disease. Last colonoscopy 2017 significant for diverticulosis and hemorrhoids. PROCEDURE PERFORMED: Colonoscopy with random biopsy. PREOPERATIVE DIAGNOSIS: Diarrhea, last colonoscopy 2017. ESTIMATED BLOOD LOSS: Minimal. IV sedation per Anesthesia. PROCEDURE: After informed consent was obtained, the patient, was brought into the endoscopy unit. IV sedation was administered by Anesthesia under continuous monitoring. Digital rectal examination was normal. Initially the Olympus CF-190 flexible video colonoscope was then inserted in the rectum, gradually advanced into the cecum without any difficulty. Careful examination was performed as the scope was gradually being withdrawn. Ileocecal valve and the appendiceal orifice were visualized and appeared normal. Prep was excellent. Mucosa of the cecum, ascending colon, transverse colon, descending colon, sigmoid colon, and rectum appeared normal. Overall the colon was very tortuous with difficulty traversing the sigmoid. Otherwise normal-appearing colon with random biopsies taken of the right colon, left colon and terminal ileum. Retroflexion was performed in the rectum and no lesions were seen. The patient tolerated the procedure well. IMPRESSION: Tortuous colon. Otherwise, normal-appearing colon from rectum to cecum and normal-appearing terminal ileum with random biopsies taken of the right colon, left colon and terminal ileum. RECOMMENDATIONS: Findings of this examination were discussed with the patient. Okay to resume diet. Okay to resume medications. Continue current medical management. Follow-up in clinic next week for results of biopsies and scheduled
[2020-03-12 10:46] VITALS: BP 125/72; PULSE 83; RESP 16
== END 2020-03-12 11:46 | disposition home or self-care (01) ==
LOC: ORWHC2ENDO 07:28
PROVIDERS: ATTEND Internal Medicine
DX: K52.9 Noninfective gastroenteritis and colitis, unspecified (principal); Q43.9 Congenital malformation of intestine, unspecified; Z87.19 Personal history of other diseases of the digestive system; Z90.710 Acquired absence of both cervix and uterus; Z98.890 Other specified postprocedural states; Z79.890 Hormone replacement therapy; Z79.899 Other long term (current) drug therapy; Z88.5 Allergy status to narcotic agent; Z83.79 Family history of other diseases of the digestive system
CPT/HCPCS: 88305; 45380; J2704

== ENCOUNTER → 2020-04-22 | Outpatient (CLI) | payer OTHER ==
--- NOTE | 2020-04-23 10:06 | MM ---
Reason for exam: additional evaluation requested from prior study. Last mammogram was performed 1 year and 2 months ago. History: Patient is postmenopausal, has history of other cancer at age 42, and is nulliparous. Family history of breast cancer in maternal aunt at age 60 and breast cancer in maternal cousin at age 43. Physical Findings: Nurse did not find any significant physical abnormalities on exam. MG Diagnostic Mammo w CAD RANDY Bilateral CC and MLO view(s) were taken. Prior study comparison: February 07, 2019, bilateral MG 3d diag mammo w/cad RANDY. March 22, 2018, bilateral MG 3d screening mammo w/cad. There are scattered fibroglandular densities. Benign appearing calcifications in the right breast. No significant new findings when compared with previous films. These results were verbally communicated with the patient and result sheet given to the patient on 04/22/20. ASSESSMENT: Benign, BI-RAD 2 RECOMMENDATION: Routine screening mammogram of both breasts in 1 year.
== END | disposition home or self-care (01) ==
LOC: RADMAMWWP 14:31
PROVIDERS: ATTEND Internal Medicine Hematology & Oncology
DX: Z08 Encounter for follow-up examination after completed treatment for malignant neoplasm (principal); Z85.3 Personal history of malignant neoplasm of breast
CPT/HCPCS: 77066

== ENCOUNTER → 2020-07-31 | Outpatient (CLI) | payer OTHER ==
[2020-07-31 08:48] LABS: Basophils # (A) 0.1 k/uL (0-0.2); Basophils % (A) 1 %; Eosinophils # (A) 0.1 k/uL (0-0.7); Eosinophils % (A) 2 %; HCT 42.5 % (34.0-46.0); HGB 14.1 gm/dL (11.4-16.0); Lymphocytes # (A) 1.7 k/uL (1.0-4.8); Lymphocytes % (A) 28 %; MCH 30.8 pg (25.0-35.0); MCHC 33.3 g/dL (31.0-37.0); MCV 92.4 fL (80.0-100.0); Mean Platelet Volume 7.2; Monocytes # (A) 0.4 k/uL (0-1.0); Monocytes % (A) 7 %; Neutrophils # (A) 3.5 k/uL (1.3-7.7); Neutrophils % (A) 60 %; Platelet Count 296 k/uL (150-450); RBC 4.59 m/uL (3.80-5.40); RDW 13.1 % (11.5-15.5); WBC 5.9 k/uL (3.8-10.6)
[2020-07-31 09:04] LABS: ALT 37 U/L (4-34); AST 30 U/L (14-36); African American GFR (CKD) >90 (>60 ml/min/1.73 sqM); Albumin 4.3 g/dL (3.5-5.0); Alkaline Phosphatase 77 U/L (38-126); Anion Gap 8 mmol/L; Blood Urea Nitrogen 19 mg/dL (7-17); Calcium 9.1 mg/dL (8.4-10.2); Carbon Dioxide 27 mmol/L (22-30); Chloride 103 mmol/L (98-107); Glucose 101 mg/dL (74-99); Non-African American GFR(CKD) >90 (>60 ml/min/1.73 sqM); Potassium 4.6 mmol/L (3.5-5.1); Sodium 138 mmol/L (137-145); Total Bilirubin 0.4 mg/dL (0.2-1.3); Total Protein 7.3 g/dL (6.3-8.2)
--- NOTE | 2020-07-31 16:31 | US ---
EXAMINATION TYPE: US gallbladder DATE OF EXAM: 07/31/2020 COMPARISON: NONE CLINICAL HISTORY: R10.11 Right upper quadrant pain. Pain EXAM MEASUREMENTS: Liver Length: 16.2 cm Gallbladder Wall: .2 cm CBD: .5 cm Right Kidney: 12.4 x 3.8 x 5.7 cm Pancreas: Tail obscured by overlying bowel gas Liver: Increased attenuation Gallbladder: wnl Evidence for sonographic Montero's sign: No CBD: wnl Right Kidney: wnl IMPRESSION: 1. Hepatomegaly with mild fatty infiltration liver
== END | disposition home or self-care (01) ==
LOC: RADUSWWP 07:28
PROVIDERS: ATTEND Internal Medicine Gastroenterology
DX: R16.0 Hepatomegaly, not elsewhere classified (principal); K76.0 Fatty (change of) liver, not elsewhere classified; R10.11 Right upper quadrant pain
CPT/HCPCS: 36415; 76705; 80053; 85025

== ENCOUNTER → 2020-08-29 | Outpatient (CLI) | payer OTHER ==
--- NOTE | 2020-08-30 08:53 | NM ---
Nuclear medicine hepatobiliary scan. HISTORY: Pain. COMPARISON: 01/28/2019 DOSAGE: The patient received 8 ounces of ensure plus of CCK and 5.4 mCi of Technetium 99m Choletec. FINDINGS: There is normal hepatic extraction. The gallbladder is seen by 40 minutes. There is bilia ry to bowel clearance by 20 minutes. Ejection fraction is 72%. IMPRESSION: 1. Normal hepatobiliary exam
== END | disposition home or self-care (01) ==
LOC: RADNMMAIN 12:03
PROVIDERS: ATTEND Pediatrics
DX: R11.0 Nausea (principal)
CPT/HCPCS: 78226; A9537

== ENCOUNTER → 2021-04-28 | Outpatient (CLI) | payer OTHER ==
--- NOTE | 2021-04-30 07:57 | MM ---
Reason for exam: screening (asymptomatic). Last mammogram was performed 1 year ago. History: Patient is postmenopausal, has history of other cancer at age 42, and is nulliparous. Family history of breast cancer in maternal aunt at age 60 and breast cancer in maternal cousin at age 43. Physical Findings: A clinical breast exam by your physician is recommended on an annual basis and results should be correlated with mammographic findings. MG Screening Mammo w CAD Bilateral CC and MLO view(s) were taken. Prior study comparison: April 22, 2020, bilateral MG diagnostic mammo w CAD RANDY. February 07, 2019, bilateral MG 3d diag mammo w/cad RANDY. March 22, 2018, bilateral MG 3d screening mammo w/cad. There are scattered fibroglandular densities. There is chronic nodularity in the left breast. No significant changes when compared with prior studies. ASSESSMENT: Benign, BI-RAD 2 RECOMMENDATION: Routine screening mammogram of both breasts in 1 year.
== END | disposition home or self-care (01) ==
LOC: RADMAMWWP 15:33
PROVIDERS: ATTEND Pediatrics
DX: Z12.31 Encounter for screening mammogram for malignant neoplasm of breast (principal)
CPT/HCPCS: 77067

== ENCOUNTER 2022-03-25 08:41 | Day surgery (SDC) | payer OTHER ==
[2022-03-23 14:45] VITALS: BMI 45.4
[~2022-03-25 08:41] MED LIST: LACTATED RINGERS 1,000 ML IV SCH; LIDOCAINE 1% (10MG/ML) FOR IV START INTRADERMA PRN
[2022-03-25] MEDS ORDERED: LACTATED RINGERS 1,000 ML IV ONE (09:31)
[2022-03-25 09:34] VITALS: TEMP 97.8
[2022-03-25] MEDS ORDERED: PROPOFOL 10 MG/ML 20 ML VIAL IV ONE (10:13)
--- NOTE | 2022-03-25 10:21 | P.PCN ---
Date of Procedure: 03/25/22 Procedure(s) Performed: BRIEF HISTORY: Patient is a 51-year-old, pleasant, female scheduled for an upper endoscopy as a part of evaluation of severe heartburn, epigastric pain for the last few months duration. She is currently on Protonix 40 mg twice daily, Pepcid at bedtime and Carafate 4 times daily and still remains symptomatic.. PROCEDURE PERFORMED: Esophagogastroduodenoscopy with biopsy. PREOPERATIVE DIAGNOSIS: GERD refractory to acid suppressive therapy. IV sedation per anesthesia. PROCEDURE: After informed consent was obtained, the patient was brought into the endoscopy unit. IV sedation was administered by Anesthesia under continuous monitoring. Initially the Olympus GIF-140 video endoscope was inserted into the mouth. Esophagus intubated without any difficulty. It was gradually advanced into the stomach and duodenum and carefully examined. The bulb and the second part of the duodenum appeared normal. The scope at this time was withdrawn to the stomach, adequately insufflated with air, and upon careful examination, mucosa of the antrum, had mild gastritis and biopsies were done from this area. Mucosa of the body, cardia and the fundus appeared normal. The scope was then withdrawn into the esophagus. Small hiatal hernia noted. The GE junction was located at 39 cm from the incisors. There was one superficial erosions at the present with LA grade a reflux esophagitis. Rest of esophagus appeared normal. Biopsies were done from this area. Patient tolerated the procedure well. IMPRESSION: 1. Antral gastritis. 2. Small hiatal hernia 3. A superficial erosion at the GE junction consistent with LA grade a reflux esophagitis RECOMMENDATIONS: The findings of this examination were discussed with the patient is a family. Advised to follow with the biopsy results.. She was advised to continue with Protonix 40 mg twice daily and follow strict diet modification antireflux measures.
[2022-03-25 10:41] VITALS: RESP 16
[2022-03-25 11:08] VITALS: BP 130/75; PULSE 60
== END 2022-03-25 11:11 | disposition home or self-care (01) ==
LOC: ORWHC2ENDO 08:41
PROVIDERS: ATTEND Internal Medicine Gastroenterology
DX: K29.50 Unspecified chronic gastritis without bleeding (principal); K31.A0 Gastric intestinal metaplasia, unspecified; K21.00 Gastro-esophageal reflux disease with esophagitis, without bleeding; M06.9 Rheumatoid arthritis, unspecified; J45.909 Unspecified asthma, uncomplicated; E07.9 Disorder of thyroid, unspecified; K44.9 Diaphragmatic hernia without obstruction or gangrene; Z79.899 Other long term (current) drug therapy; Z79.891 Long term (current) use of opiate analgesic
CPT/HCPCS: 43239; 88305; J2704

== ENCOUNTER → 2023-03-31 | Outpatient (CLI) | payer MEDICARE, OTHER | LOC: 3 N SLEEP 10:33 | PROVIDERS: ATTEND Internal Medicine Critical Care Medicine | DX: G47.33 Obstructive sleep apnea (adult) (pediatric) (principal); Z88.5 Allergy status to narcotic agent ==

== ENCOUNTER 2023-05-27 19:18 | Outpatient (CLI) | payer MEDICARE, OTHER | END 2023-05-28 05:55 | disposition home or self-care (01) | LOC: 3 N SLEEP 19:18 | PROVIDERS: ATTEND Internal Medicine Critical Care Medicine | DX: G47.33 Obstructive sleep apnea (adult) (pediatric) (principal); Z88.5 Allergy status to narcotic agent | CPT/HCPCS: 95811 ==

== ENCOUNTER 2024-03-24 11:33 | Inpatient (IN) | payer MEDICARE, OTHER ==
[2024-03-24] MEDS ORDERED: DEXAMETHASONE SOD PHOSPHATE 10 MG/ML 1 ML VIAL IVP STA (12:47)
--- NOTE | 2024-03-24 12:49 | ED ---
General Adult HPI - General Chief complaint: Recheck/Abnormal Lab/Rx Stated complaint: Blood issue Time Seen by Provider: 03/24/24 12:00 Source: patient, RN notes reviewed, old records reviewed Mode of arrival: EMS Limitations: no limitations - History of Present Illness Initial comments: This is a 53-year-old female who presents to the emergency department with a past medical history significant for blood clots. Patient is on Xarelto. Patient states over the last few days she been noting quite a few areas of bruising without having any trauma so she went to the emergency department at [facility] and they found that her platelets were 10. Patient was told to be come to our facility to see Dr. Dia mosley. Patient denies any headache patient denies any chest pain difficulty breathing shortness of breath. Patient has any abdominal pain. Patient states aside from feeling just a little tired and having bruises she feels at her baseline. - Related Data Home Medications Medication Instructions Recorded Confirmed Hydroxychloroquine Sulfate 200 mg PO BID 01/30/19 03/23/22 [Plaquenil] Levothyroxine Sodium [Synthroid] 150 mcg PO DAILY 01/30/19 03/23/22 allopurinoL [Zyloprim] 100 mg PO BID 01/30/19 03/23/22 Fluticasone Nasal [place] [Flonase 1 spr EA NOSTRIL DAILY 03/07/20 03/23/22 Nasal [place]] Albuterol Sulfate [Proair Hfa] 1 - 2 puff INHALATION Q6HR PRN 03/23/22 03/23/22 DULoxetine HCL [Cymbalta] 30 mg PO BID 03/23/22 03/23/22 Dicyclomine [Bentyl] 40 mg PO QID 03/23/22 03/23/22 Furosemide [Lasix] 40 mg PO DAILY 03/23/22 03/23/22 Gabapentin [Neurontin] 400 mg PO TID 03/23/22 03/23/22 Meclizine [Antivert] 25 mg PO QID PRN 03/23/22 03/23/22 Montelukast [Singulair] 10 mg PO DAILY 03/23/22 03/23/22 Pantoprazole [Protonix] 40 mg PO BID 03/23/22 03/23/22 Rivaroxaban [Xarelto] 15 mg PO HS 03/23/22 03/23/22 SUMAtriptan succinate [Imitrex] 50 mg PO ONCE PRN 03/23/22 03/23/22 Sucralfate [Carafate] 1 gm PO BID 03/23/22 03/23/22 rOPINIRole HCL [Requip] 0.25 mg PO HS 03/23/22 03/23/22 Allergies Allergy/AdvReac Type Severity Reaction Status Date / Time hydrocodone bitartrate AdvReac Nausea & Verified 03/23/22 14:21 [From Vicodin] Vomiting Review of Systems ROS Statement: Those systems with pertinent positive or pertinent negative responses have been documented in the HPI. ROS Other: All systems not noted in ROS Statement are negative. Past Medical History Past Medical History: Asthma, Cancer, Deep Vein Thrombosis (DVT), GERD/Reflux, Pulmonary Embolus (PE), Rheumatoid Arthritis (RA), Thyroid Disorder Additional Past Medical History / Comment(s): clotting disorder - does not know name- sees Dr Alvares., DVT 2008 & PE 2009., hx of gout., cervical ca., ibs., hiatal hernia., swelling lower extremities., neuropathy hands, legs and feet- uses cane., RLS., migraines., hx covid Apr 2021., states rash on arms. History of Any Multi-Drug Resistant Organisms: None Reported Past Surgical History: Hysterectomy Additional Past Surgical History / Comment(s): ganglion cyst removed from right wrist, EGD Past Anesthesia/Blood Transfusion Reactions: No Reported Reaction Past Psychological History: No Psychological Hx Reported Smoking Status: Former smoker Past Alcohol Use History: Rare Past Drug Use History: None Reported - Past Family History Father Additional Family Medical History / Comment(s): in MVA - no medical p roblems Mother Family Medical History: Congestive Heart Failure (CHF), COPD, Diabetes Mellitus Additional Family Medical History / Comment(s): pacer General Exam - General Exam Comments Initial Comments: GENERAL: Patient is well-developed and well-nourished. Patient is nontoxic and well- hydrated and is in no acute distress. ENT: Neck is soft and supple. No significant lymphadenopathy is noted. Oropharynx is clear. Moist mucous membranes. Neck has full range of motion without eliciting any pain. EYES: The sclera were anicteric and conjunctiva were pink and moist. Extraocular movements were intact and pupils were equal round and reactive to light. Eyelids were unremarkable. PULMONARY: Unlabored respirations. Good breath sounds bilaterally. No audible rales rhonchi or wheezing was noted. CARDIOVASCULAR: There is a regular rate and rhythm without any murmurs gallops or rubs. Femoral pulses are equal bilaterally ABDOMEN: Soft and nontender with normal bowel sounds. No palpable organomegaly was noted. There is no palpable pulsatile mass. SKIN: Some bruising on bilateral arms and abdomen NEUROLOGIC: Patient is alert and oriented x3. Cranial nerves II through XII are grossly intact. Motor and sensory are also intact. Normal speech, volume and content. Symmetrical smile. MUSCULOSKELETAL: Normal extremities with adequate strength and full range of motion. No lower extremity swelling or edema. No calf tenderness. LYMPHATICS: No significant lymphadenopathy is noted PSYCHIATRIC: Normal psychiatric evaluation. Limitations: no limitations Course Vital Signs 03/24/24 03/24/24 11:48 14:14 Temperature 98 F Pulse Rate 65 71 Respiratory 16 18 Rate Blood Pressure 146/78 127/70 O2 Sat by Pulse 100 98 Oximetry Medical Decision Making - Medical Decision Making Was pt. sent in by a medical professional or institution (, PA, SOFTWARE DEVELOPMENT SPECIALIST, urgent care, hospital, or halfway...) When possible be specific @ -Patient was sent to us by [facility] Did you speak to anyone other than the patient for history (EMS, parent, family, police, friend...)? What history was obtained from this source @ -The ER physician called our ER doctor Dr. Castellano prior to the patient's arrival Did you review nursing and triage notes (agree or disagree)? Why? @ -I reviewed and agree with nursing and triage notes Were old charts reviewed (outside hosp., previous admission, EMS record, old EKG, old radiological studies, urgent care reports/EKG's, halfway records)? Report findings @ -I reviewed [place]'s chart and the lab work that they sent with the patient it did show platelets were very low. Differential Diagnosis? @ -Idiopathic thrombocytopenia, adverse med reaction, lab error, this is not an all-inclusive list EKG interpreted by me (3pts min.). @ -As above X-rays interpreted by me (1pt min.). @ -None done CT interpreted by me (1pt min.). @ -None done U/S interpreted by me (1pt. min.). @ -None done What testing was considered but not performed or refused? (CT, X-rays, U/S, labs)? Why? @ -None What meds were considered but not given or refused? Why? @ -None Did you discuss the management of the patient with other professionals (professionals i.e. DrDani, PA, SOFTWARE DEVELOPMENT SPECIALIST, lab, RT, psych nurse, social media coordinator, button tacker, teacher, co founder and chief strategy officer, housing case manager)? Give summary @ -I spoke with Dr. Alvares he agreed that the patient should be admitted he will be on consult and they wanted the patient to get dexamethasone 40 mg IV piggyback I also spoke with . She agreed to admit the patient admit the patient Was smoking cessation discussed for >3mins.? @ -No Was critical care preformed (if so, how long)? @ -No Were there social determinants of health that impacted care today? How? (Homeles sness, low income, unemployed, alcoholism, drug addiction, transportation, low edu. Level, literacy, decrease access to med. care, retirement, rehab)? @ -No Was there de-escalation of care discussed even if they declined (Discuss DNR or withdrawal of care, Hospice)? DNR status @ -No What co-morbidities impacted this encounter? (DM, HTN, Smoking, COPD, CAD, Cancer, CVA, ARF, Chemo, Hep., AIDS, mental health diagnosis, sleep apnea, morbid obesity)? @ -None Was patient admitted / discharged? Hospital course, mention meds given and route, prescriptions, significant lab abnormalities, going to OR and other pertinent info. @ -Patient had no further problems while in the emergency department she did receive dexamethasone 40 mg. Patient will be admitted to Dr. Howe with consult to Dr. Alvares Undiagnosed new problem with uncertain prognosis? @ -No Drug Therapy requiring intensive monitoring for toxicity (Heparin, Nitro, Insulin, Cardizem)? @ -No Were any procedures done? @ -No Diagnosis/symptom? @ -Thrombocytopenia Acute, or Chronic, or Acute on Chronic? @ -Acute Uncomplicated (without systemic symptoms) or Complicated (systemic symptoms)? @ -Complicated Side effects of treatment? @ -No Exacerbation, Progression, or Severe Exacerbation? @ -No Poses a threat to life or bodily function? How? (Chest pain, [place], MT, pneumonia, PE, COPD, DKA, ARF, appy, cholecystitis, CVA, Diverticulitis, Homicidal, Suicidal, threat to staff... and all critical care pts) @ -This can lead to further bleeding and poor perfusion and endorgan dysfunction - Lab Data Result diagrams: 03/24/24 13:07 03/24/24 13:07 Lab Results 03/24/24 03/24/24 Range/Units 13:07 13:07 WBC 3.8 (3.8-10.6) k/uL RBC 4.04 (3.80-5.40) m/uL Hgb 12.7 (11.4-16.0) gm/dL Hct 38.5 (34.0-46.0) % MCV 95.2 (80.0-100.0) fL MCH 31.5 (25.0-35.0) pg MCHC 33.1 (31.0-37.0) g/dL RDW 13.3 (11.5-15.5) % Plt Count 11 L* (150-450) k/uL MPV 11.2 Neutrophils % 53 % Lymphocytes % 37 % Monocytes % 5 % Eosinophils % 3 % Basophils % 1 % Neutrophils # 2.0 (1.3-7.7) k/uL Lymphocytes # 1.4 (1.0-4.8) k/uL Monocytes # 0.2 (0-1.0) k/uL Eosinophils # 0.1 (0-0.7) k/uL Basophils # 0.0 (0-0.2) k/uL Sodium 140 (137-145) mmol/L Potassium 3.8 (3.5-5.1) mmol/L Chloride 105 (98-107) mmol/L Carbon Dioxide 29 (22-30) mmol/L Anion Gap 6 mmol/L BUN 14 (7-17) mg/dL Creatinine 0.85 (0.52-1.04) mg/dL Est GFR (CKD-EPI)AfAm >90 (>60 ml/min/1.73 sqM) Est GFR (CKD-EPI)NonAf 79 (>60 ml/min/1.73 sqM) Glucose 96 (74-99) mg/dL Calcium 9.1 (8.4-10.2) mg/dL Magnesium 2.2 (1.6-2.3) mg/dL Total Bilirubin 0.4 (0.2-1.3) mg/dL AST 33 (14-36) U/L ALT 23 (4-34) U/L Alkaline Phosphatase 95 (38-126) U/L Total Protein 6.6 (6.3-8.2) g/dL Albumin 4.0 (3.5-5.0) g/dL Disposition Clinical Impression: Thrombocytopenia Disposition: ADMITTED IP TO THIS HOSP Referrals: Yang Niño MD [Primary Care Provider] - 1-2 days Time of Disposition: 14:44
[2024-03-24 13:14] LABS: Basophils % (A) 1 %; Eosinophils # (A) 0.1 k/uL (0-0.7); Eosinophils % (A) 3 %; HCT 38.5 % (34.0-46.0); HGB 12.7 gm/dL (11.4-16.0); Lymphocytes # (A) 1.4 k/uL (1.0-4.8); Lymphocytes % (A) 37 %; MCH 31.5 pg (25.0-35.0); MCHC 33.1 g/dL (31.0-37.0); MCV 95.2 fL (80.0-100.0); Mean Platelet Volume 11.2; Monocytes # (A) 0.2 k/uL (0-1.0); Monocytes % (A) 5 %; Neutrophils % (A) 53 %; RBC 4.04 m/uL (3.80-5.40); RDW 13.3 % (11.5-15.5); WBC 3.8 k/uL (3.8-10.6)
[2024-03-24 14:04] LABS: Platelet Count 11 k/uL (150-450)
[2024-03-24 14:12] LABS: ALT 23 U/L (4-34); AST 33 U/L (14-36); African American GFR (CKD) >90 (>60 ml/min/1.73 sqM); Alkaline Phosphatase 95 U/L (38-126); Anion Gap 6 mmol/L; Blood Urea Nitrogen 14 mg/dL (7-17); Calcium 9.1 mg/dL (8.4-10.2); Carbon Dioxide 29 mmol/L (22-30); Chloride 105 mmol/L (98-107); Glucose 96 mg/dL (74-99); Magnesium 2.2 mg/dL (1.6-2.3); Non-African American GFR(CKD) 79 (>60 ml/min/1.73 sqM); Potassium 3.8 mmol/L (3.5-5.1); Sodium 140 mmol/L (137-145); Total Bilirubin 0.4 mg/dL (0.2-1.3); Total Protein 6.6 g/dL (6.3-8.2)
[2024-03-24] MEDS: DEXTROSE 5% IVPB ONE (14:26)
[2024-03-24] MEDS: DEXAMETHASONE SOD PHOS IVPB ONE (14:26)
[2024-03-24] MEDS: DEXAMETHASONE SOD PHOS (MDV) 20 MG in DEXTROSE 5% IN WATER 50 ML IVPB ONE (14:26)
[2024-03-24] MEDS: WATER IVPB ONE (14:26)
[2024-03-24] MEDS: PANTOPRAZOLE 40 MG/10 ML VIAL IVP SCH (16:26)
[2024-03-24] MEDS ORDERED: SUMAtriptan succinate 50 MG TAB PO PRN (20:09)
[2024-03-24] MEDS ORDERED: ACETAMINOPHEN TAB 500 MG TAB PO PRN (20:09)
[2024-03-24] MEDS ORDERED: MECLIZINE 25 MG TAB PO PRN (20:09)
[2024-03-24] MEDS ORDERED: LOPERAMIDE 2 MG CAP PO PRN (20:09)
[2024-03-24] MEDS: allopurinoL 100 MG TAB PO SCH (21:07)
[2024-03-24] MEDS: DULoxetine HCL 30 MG CAPSULE.DR PO SCH (21:07)
[2024-03-24] MEDS: HYDROXYCHLOROQUINE SULFATE 200 MG TAB PO SCH (21:08)
--- NOTE | 2024-03-24 22:20 | P.CONS ---
History of Present Illness - Reason for Consult Consult date: 03/24/24 ( heat) Thrombocytopenia - Chief Complaint Ecchymoses - History of Present Illness Ms. Covington is a 53-year-old woman with a past medical history significant for rheumatoid arthritis on Plaquenil 20 mg twice daily and DVT of the right lower extremity on Xarelto for whom hematology is consulted regarding thrombocytopenia. Over the past week, she has noted increased fatigue and malaise of unclear etiology. She notes it was taking longer than normal to complete routine tasks. Over the past 4 days, she developed ecchymoses on her extremities and trunk without any trauma. She had CBC performed outpatient that revealed platelets of 10. She was advised to present to the ED in [place] for additional management. She is subsequently transferred to [facility]. She was hemodynamically stable and afebrile on presentation. CBC noted WBC 3.8 (ANC 2), hemoglobin 12.7 (MCV 95.2), and platelets 11. CMP revealed no acute metabolic abnormalities. She was given dexamethasone 40 mg IV and admitted to internal medicine for additional management. Currently, she denies any fevers, chills, night sweats, lymphadenopathy, anorexia, or unexplained weight loss. There have been no significant illnesses or infections over the past month. She denies any flares of rheumatoid arthritis. She denies any melena, hematochezia, bright red per rectum, hematuria, or headaches. Review of Systems 14 point review of systems conducted with pertinent positives and negatives as noted per HPI. Past Medical History Past Medical History: Asthma, Cancer, Deep Vein Thrombosis (DVT), GERD/Reflux, Pulmonary Embolus (PE), Rheumatoid Arthritis (RA), Thyroid Disorder Additional Past Medical History / Comment(s): clotting disorder - does not know name- sees Dr Alvares., DVT 2008 & PE 2009., hx of gout., cervical ca., ibs., hiatal hernia., swelling lower extremities., neuropathy hands, legs and feet- uses cane., RLS., migraines., hx covid Apr 2021., states rash on arms. History of Any Multi-Drug Resistant Organisms: None Reported Past Surgical History: Hysterectomy Additional Past Surgical History / Comment(s): ganglion cyst removed from right wrist, EGD Past Anesthesia/Blood Transfusion Reactions: No Reported Reaction Past Psychological History: No Psychological Hx Reported Smoking Status: Former smoker Past Alcohol Use History: Rare Past Drug Use History: None Reported - Past Family History Father Additional Family Medical History / Comment(s): in MVA - no medical problems Mother Family Medical History: Congestive Heart Failure (CHF), COPD, Diabetes Mellitus Additional Family Medical History / Comment(s): pacer Medications and Allergies Home Medications Medication Instructions Recorded Confirmed Type Hydroxychloroquine Sulfate 200 mg PO BID 01/30/19 03/24/24 History [Plaquenil] Levothyroxine Sodium [Synthroid] 150 mcg PO DAILY 01/30/19 03/24/24 History allopurinoL [Zyloprim] 200 mg PO BID 01/30/19 03/24/24 History Fluticasone Nasal [place] [Flonase 1 spr EA NOSTRIL DAILY 03/07/20 03/24/24 History Nasal [place]] Albuterol Sulfate [Proair Hfa] 1 - 2 puff INHALATION RT-Q6H PRN 03/23/22 03/24/24 History DULoxetine HCL [Cymbalta] 30 mg PO BID 03/23/22 03/24/24 History Dicyclomine [Bentyl] 20 mg PO TID 03/23/22 03/24/24 History Furosemide [Lasix] 40 mg PO DAILY 03/23/22 03/24/24 History Meclizine [Antivert] 25 mg PO QID PRN 03/23/22 03/24/24 History Montelukast [Singulair] 10 mg PO DAILY 03/23/22 03/24/24 History Pantoprazole [Protonix] 40 mg PO BID 03/23/22 03/24/24 History Rivaroxaban [Xarelto] 15 mg PO HS 03/23/22 03/24/24 History SUMAtriptan succinate [Imitrex] 50 mg PO BID PRN 03/23/22 03/24/24 History Sucralfate [Carafate] 1 gm PO DAILY 03/23/22 03/24/24 History rOPINIRole HCL [Requip] 0.25 mg PO HS 03/23/22 03/24/24 History Acetaminophen Tab [Tylenol Tab] 500 mg PO Q6H PRN 03/24/24 03/24/24 History Cetirizine HCl [Zyrtec] 10 mg PO DAILY 03/24/24 03/24/24 History Cholestyramine (with Sugar) 4 gm PO BID PRN 03/24/24 03/24/24 History [Cholestyramine Packet] Famotidine [Pepcid] 40 mg PO DAILY 03/24/24 03/24/24 History Furosemide [Lasix] 20 mg PO DAILY@1600 03/24/24 03/24/24 History Gabapentin 600 mg PO TID 03/24/24 03/24/24 History Indomethacin [Indocin] 50 mg PO TID PRN 03/24/24 03/24/24 History Loperamide [Imodium] 2 mg PO QID PRN 03/24/24 03/24/24 History methylPREDNISolone Dose Pack 4 mg PO DIRECTED PRN 03/24/24 03/24/24 History [Medrol Dose Pack] traMADol HCl [Ultram] 50 mg PO Q6HR PRN 03/24/24 03/24/24 History Allergies Allergy/AdvReac Type Severity Reaction Status Date / Time hydrocodone bitartrate AdvReac Nausea & Verified 03/24/24 16:14 [From Vicodin] Vomiting Physical Exam Vitals: Vital Signs Temp Pulse Resp BP Pulse Ox 03/24/24 21:05 82 18 132/77 94 L 03/24/24 19:00 82 18 120/82 95 03/24/24 16:33 73 18 143/89 03/24/24 14:14 71 18 127/70 98 03/24/24 11:48 98 F 65 16 146/78 100 Intake and Output 03/24/24 03/24/24 03/24/24 06:59 14:59 22:59 Other: Weight 131.995 kg - Constitutional General appearance: cooperative, no acute distress, obese - EENT Eyes: EOMI - Neck Neck: no lymphadenopathy - Respiratory Respiratory: bilateral: CTA - Cardiovascular Rhythm: regular - Gastrointestinal General gastrointestinal: no distended, normal bowel sounds, soft, no tenderness - Integumentary Ecchymosis noted on the upper extremities and lower extremities bilaterally - Neurologic Neurologic: CNII-XII intact - Psychiatric Psychiatric: A&O x's 3 Results CBC & Chem 7: 03/24/24 13:07 03/24/24 13:07 Labs: Abnormal Lab Results - Last 24 Hours (Table) 03/24/24 Range/Units 13:07 Plt Count 11 L* (150-450) k/uL Assessment and Plan Plan: #ITP -Initially noted fatigue and malaise approximately 1 week ago followed by development of spontaneous ecchymoses on the bilateral extremities and trunk over the past 4 days -Platelets on outpatient CBC were 10,000 and repeat was 11,000 on admission with no other cytopenias -She denies any recent infection, flares of RA, signs or symptoms concerning for malignancy, or new medications -Clinically, 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 It is unclear if this is idiopathic or possibly related to underlying rheumatoid arthritis. She is on lasix outpatient, which has been known to be associated with drug-induced ITP -Recommend dexamethasone 40 mg IV daily for 4 days with IV PPI for prophylaxis -Do not recommend platelet transfusion unless there is evidence of active bleeding as this will not help raise her platelet count with the platelets undergoing autoimmune consumption -If she does not have significant rise in platelet count over the next 1 to 2 days, IVIG could be considered as an adjunct -She will need transition to oral prednisone 1 mg/kg daily with prolonged taper 10 mg/week once platelets rise above 20,000 to continue treatment outpatient #DVT of the right lower extremity -Hold Xarelto 15 mg daily while platelets are less than 50,000 Shannan Alvares MD
[2024-03-24] MEDS: GABAPENTIN 300 MG CAP PO SCH (22:35)
[2024-03-24] MEDS: DICYCLOMINE 20 MG TAB PO SCH (22:35)
[2024-03-25] MEDS: LEVOTHYROXINE 75 MCG TAB PO SCH (05:26)
[2024-03-25 06:05] LABS: Glucose,Whole Blood 143 mg/dL (70-110)
[2024-03-25 07:46] LABS: Basophils % (A) 0 %; Eosinophils % (A) 0 %; HCT 40.7 % (34.0-46.0); HGB 13.3 gm/dL (11.4-16.0); Lymphocytes # (A) 0.7 k/uL (1.0-4.8); Lymphocytes % (A) 11 %; MCH 31.4 pg (25.0-35.0); MCHC 32.7 g/dL (31.0-37.0); MCV 96.2 fL (80.0-100.0); Mean Platelet Volume 10.7; Monocytes # (A) 0.1 k/uL (0-1.0); Monocytes % (A) 2 %; Neutrophils % (A) 86 %; RBC 4.23 m/uL (3.80-5.40); RDW 13.3 % (11.5-15.5); WBC 5.9 k/uL (3.8-10.6)
[2024-03-25 08:07] LABS: Platelet Count 24 k/uL (150-450)
[2024-03-25] MEDS: FUROSEMIDE 40 MG TAB PO SCH (09:26)
[2024-03-25] MEDS: MONTELUKAST 10 MG TAB PO SCH (09:27)
[2024-03-25] MEDS: DEXAMETHASONE SOD PHOS (MDV) 40 MG in DEXTROSE 5% IN WATER 50 ML IVPB SCH (09:27)
[2024-03-25] MEDS: LORATADINE 10 MG TAB PO SCH (09:27)
[2024-03-25 11:47] LABS: Glucose,Whole Blood 135 mg/dL (70-110)
[2024-03-25] MEDS: FUROSEMIDE 20 MG TAB PO SCH (15:47)
[2024-03-25 16:57] LABS: Glucose,Whole Blood 186 mg/dL (70-110)
--- NOTE | 2024-03-25 18:28 | P.HPIM ---
History of Present Illness H&P Date: 03/25/24 Chief Complaint: Easy bruising This is a pleasant 53-year-old patient, follows with Dr. Jose Elias Niño. Chronic stable medical conditions include asthma, GERD, rheumatoid arthritis, hypothyroid. Has a clotting disorder for which she follows Dr. Magallon. DVT in 2008 in 2009 with PE. Has been on Xarelto. Gout. Hiatal hernia. Neuropathy. Restless leg syndrome. COVID in April 2021. For about 2 weeks patient been noticing increasing bruising around the body. Different size. No bleeding. Patient does not menstruate. Patient is discovered to have a platelet of 10. Admitted. Started on steroids. at the bedside. No prior history of thrombocytopenia. Review of systems: GEN.: None EYES: None HEENT: None NECK: None RESPIRATORY: None CARDIOVASCULAR: None GASTROINTESTINAL: None GENITOURINARY: None MUSCULOSKELETAL: None LYMPHATICS: None HEMATOLOGICAL: [As above PSYCHIATRY: None NEUROLOGICAL: None Social history: Alcohol rarely. No smoking. . Physical examination: VITAL SIGNS: 98.2, 95, 18, 108 x 68, 97% room air GENERAL: BMI 48.1, reclining bed awake not in distress. EYES: Pupils equal. Conjunctiva naz l. HEENT: External appearance of nose and ears normal, oral cavity grossly normal. NECK: JVD not raised; masses not palpable. HEART: First and second heart sounds are normal; no edema. LUNGS: Respiratory rate normal; clear to auscultation. ABDOMEN: Soft, nontender, liver spleen not palpable, no masses palpable. PSYCH: Alert and oriented x3; mood and affect naz l. MUSCULOSKELETAL:No Clubbing/cyanosis;muscles-grossly intact DERMATOLOGICAL: Some scattered bruising NEUROLOGICAL: Cranial nerves grossly intact; no facial asymmetry, power and sensation grossly intact. LYMPHATICS: No lymph nodes palpable in the axilla and neck INVESTIGATIONS, reviewed in the clinical context: March 25: White count 5.9 hemoglobin 13.3 platelets March 24: Platelets 11 sodium 140 potassium 3.8 creatinine 0.85 Assessment plan: -Severe thrombocytopenia possibly ITP. Present with the initial platelet count of 10. Started on IV dexamethasone 40 mg a day. Being followed by hematology. -Peripheral neuropathy Neurontin 6 7 mg 3 times daily -Rheumatoid arthritis Plaquenil 200 mg twice daily -Hypothyroid Synthroid 150 mcg a day -Restless leg syndrome Requip 0.25 mg nightly -Chronic gout/hyperuricemia Allopurinol to 1 mg twice daily -Chronic clotting disorder being followed by Dr. Abernathy. Type unknown. With a prior history of DVT and PE. Hold Xarelto for now -Morbid obesity BMI 48.1 Weight loss measures Care was discussed with the patient at the bedside. Home medications reviewed will hold Xarelto. Past Medical History Past Medical History: Asthma, Cancer, Deep Vein Thrombosis (DVT), GERD/Reflux, Pulmonary Embolus (PE), Rheumatoid Arthritis (RA), Thyroid Disorder Additional Past Medical History / Comment(s): clotting disorder - does not know name- sees Dr Alvares., DVT 2008 & PE 2009., hx of gout., cervical ca., ibs., hiatal hernia., swelling lower extremities., neuropathy hands, legs and feet- uses cane., RLS., migraines., hx covid Apr 2021., states rash on arms. History of Any Multi-Drug Resistant Organisms: None Reported Past Surgical History: Hysterectomy Additional Past Surgical History / Comment(s): ganglion cyst removed from right wrist, EGD Past Anesthesia/Blood Transfusion Reactions: No Reported Reaction Past Psychological History: No Psychological Hx Reported Smoking Status: Former smoker Past Alcohol Use History: Rare Past Drug Use History: None Reported - Past Family History Father Additional Family Medical History / Comment(s): in MVA - no medical problems Mother Family Medical History: Congestive Heart Failure (CHF), COPD, Diabetes Mellitus Additional Family Medical History / Comment(s): pacer Medications and Allergies Home Medications Medication Instructions Recorded Confirmed Type Hydroxychloroquine Sulfate 200 mg PO BID 01/30/19 03/24/24 History [Plaquenil] Levothyroxine Sodium [Synthroid] 150 mcg PO DAILY 01/30/19 03/24/24 History allopurinoL [Zyloprim] 200 mg PO BID 01/30/19 03/24/24 History Fluticasone Nasal [place] [Flonase 1 spr EA NOSTRIL DAILY 03/07/20 03/24/24 History Nasal [place]] Albuterol Sulfate [Proair Hfa] 1 - 2 puff INHALATION RT-Q6H PRN 03/23/22 03/24/24 History DULoxetine HCL [Cymbalta] 30 mg PO BID 03/23/22 03/24/24 History Dicyclomine [Bentyl] 20 mg PO TID 03/23/22 03/24/24 History Furosemide [Lasix] 40 mg PO DAILY 03/23/22 03/24/24 History Meclizine [Antivert] 25 mg PO QID PRN 03/23/22 03/24/24 History Montelukast [Singulair] 10 mg PO DAILY 03/23/22 03/24/24 History Pantoprazole [Protonix] 40 mg PO BID 03/23/22 03/24/24 History Rivaroxaban [Xarelto] 15 mg PO HS 03/23/22 03/24/24 History SUMAtriptan succinate [Imitrex] 50 mg PO BID PRN 03/23/22 03/24/24 History Sucralfate [Carafate] 1 gm PO DAILY 03/23/22 03/24/24 History rOPINIRole HCL [Requip] 0.25 mg PO HS 03/23/22 03/24/24 History Acetaminophen Tab [Tylenol Tab] 500 mg PO Q6H PRN 03/24/24 03/24/24 History Cetirizine HCl [Zyrtec] 10 mg PO DAILY 03/24/24 03/24/24 History Cholestyramine (with Sugar) 4 gm PO BID PRN 03/24/24 03/24/24 History [Cholestyramine Packet] Famotidine [Pepcid] 40 mg PO DAILY 03/24/24 03/24/24 History Furosemide [Lasix] 20 mg PO DAILY@1600 03/24/24 03/24/24 History Gabapentin 600 mg PO TID 03/24/24 03/24/24 History Indomethacin [Indocin] 50 mg PO TID PRN 03/24/24 03/24/24 History Loperamide [Imodium] 2 mg PO QID PRN 03/24/24 03/24/24 History methylPREDNISolone Dose Pack 4 mg PO DIRECTED PRN 03/24/24 03/24/24 History [Medrol Dose Pack] traMADol HCl [Ultram] 50 mg PO Q6HR PRN 03/24/24 03/24/24 History Allergies Allergy/AdvReac Type Severity Reaction Status Date / Time hydrocodone bitartrate AdvReac Nausea & Verified 03/24/24 16:14 [From Vicodin] Vomiting Physical Exam Vitals: Vital Signs Temp Pulse Pulse Resp BP BP Pulse Ox 03/25/24 09:23 98.2 F 95 18 108/68 97 03/25/24 04:00 86 16 113/74 92 L 03/25/24 02:00 74 16 03/25/24 00:00 74 16 114/68 94 L 03/24/24 22:15 77 18 121/76 95 03/24/24 22:10 81 18 117/78 94 L 03/24/24 21:05 82 18 132/77 94 L 03/24/24 19:00 82 18 120/82 95 03/24/24 16:33 73 18 143/89 03/24/24 14:14 71 18 127/70 98 03/24/24 11:48 98 F 65 16 146/78 100 Intake and Output 03/24/24 03/25/24 03/25/24 22:59 06:59 14:59 Other: Voiding Method Toilet Toilet # Voids 1 Weight 131.995 kg 131 kg Results CBC & Chem 7: 03/25/24 07:15 03/24/24 13:07 Labs: Abnormal Lab Results - Last 24 Hours (Table) 03/24/24 03/25/24 03/25/24 Range/Units 13:07 06:04 07:15 Plt Count 11 L* 24 L D (150-450) k/uL Lymphocytes # 0.7 L (1.0-4.8) k/uL POC Glucose (mg/dL) 143 H (70-110) mg/dL Thrombosis Risk Factor Assmnt - Choose All That Apply Any of the Below Risk Factors Present?: Yes Each Factor Represents 1 point: Age 41-60 years, Obesity (BMI >25), Swollen legs (current) Other Risk Factors: Yes Each Risk Factor Represents 3 Points: History of DVT/PE Other congenital or acquired thrombophilia - If yes, enter type in comment: No Thrombosis Risk Factor Assessment Total Risk Factor Score: 6 Thrombosis Risk Factor Assessment Level: High Risk
[2024-03-25 19:59] LABS: Glucose,Whole Blood 173 mg/dL (70-110)
[2024-03-26 06:01] LABS: Glucose,Whole Blood 128 mg/dL (70-110)
[2024-03-26 11:49] LABS: Glucose,Whole Blood 113 mg/dL (70-110)
--- NOTE | 2024-03-26 13:18 | P.PN ---
Progress Note - Text Progress Note Date: 03/26/24 Chief Complaint: Easy bruising This is a pleasant 53-year-old patient, follows with Dr. Jose Elias Niño. Chronic stable medical conditions include asthma, GERD, rheumatoid arthritis, hypothyroid. Has a clotting disorder for which she follows Dr. Magallon. DVT in 2008 in 2009 with PE. Has been on Xarelto. Gout. Hiatal hernia. Neuropathy. Restless leg syndrome. COVID in April 2021. For about 2 weeks patient been noticing increasing bruising around the body. Different size. No bleeding. Patient does not menstruate. Patient is discovered to have a platelet of 10. Admitted. Started on steroids. at the bedside. No prior history of thrombocytopenia. March 26: Remains on IV Decadron. Platelets 24. Bruising is lightening up. Told to increase activity around the room. Hematology following. Discussed with patient . Active Medications Acetaminophen (Acetaminophen Tab 500 Mg Tab) 500 mg PO Q6H PRN PRN Reason: Mild Pain Allopurinol (Allopurinol 100 Mg Tab) 200 mg PO BID [facility] Last Admin: 03/26/24 09:06 Dose: 200 mg Dicyclomine HCl (Dicyclomine 20 Mg Tab) 20 mg PO TID [facility] Last Admin: 03/26/24 09:06 Dose: 20 mg Duloxetine HCl (Duloxetine Hcl 30 Mg Capsule.) 30 mg PO BID [facility] Last Admin: 03/26/24 09:05 Dose: 30 mg Furosemide (Furosemide 20 Mg Tab) 20 mg PO DAILY@1600 [facility] Last Admin: 03/25/24 15:47 Dose: 20 mg Furosemide (Furosemide 40 Mg Tab) 40 mg PO DAILY [facility] Last Admin: 03/26/24 09:06 Dose: 40 mg Gabapentin (Gabapentin 300 Mg Cap) 600 mg PO TID [facility] Last Admin: 03/26/24 09:06 Dose: 600 mg Hydroxychloroquine Sulfate (Hydroxychloroquine Sulfate 200 Mg Tab) 200 mg PO BID [facility] Last Admin: 03/26/24 09:05 Dose: 200 mg Dexamethasone Sodium Phosphate (40 mg/ Dextrose/Water) 54 mls @ 100 mls/hr IVPB DAILY [facility] Stop: 03/27/24 09:33 Last Admin: 03/26/24 11:21 Dose: 100 mls/hr Levothyroxine Sodium (Levothyroxine 75 Mcg Tab) 150 mcg PO DAILY@0630 [facility] Last Admin: 03/26/24 05:17 Dose: 150 mcg Loperamide HCl (Loperamide 2 Mg Cap) 2 mg PO QID PRN PRN Reason: Diarrhea Loratadine (Loratadine 10 Mg Tab) 10 mg PO DAILY [facility] Last Admin: 03/26/24 09:06 Dose: 10 mg Meclizine HCl (Meclizine 25 Mg Tab) 25 mg PO QID PRN PRN Reason: Vertigo Montelukast Sodium (Montelukast 10 Mg Tab) 10 mg PO DAILY [facility] Last Admin: 03/26/24 09:06 Dose: 10 mg Pantoprazole Sodium (Pantoprazole 40 Mg/10 Ml Vial) 40 mg IVP DAILY [facility] Last Admin: 03/26/24 09:06 Dose: 40 mg Ropinirole HCl (Ropinirole Hcl 0.25 Mg Tab) 0.25 mg PO HS [facility] Last Admin: 03/25/24 21:25 Dose: 0.25 mg Sumatriptan Succinate (Sumatriptan Succinate 50 Mg Tab) 50 mg PO BID PRN PRN Reason: Migraine Headache Tramadol HCl (Tramadol 50 Mg Tab) 50 mg PO Q6HR PRN PRN Reason: Pain Social history: Alcohol rarely. No smoking. . Physical examination: VITAL SIGNS: 98.1, 79, 17, 112 x 85, 99% room air GENERAL: BMI 48.1, suitable. Bruising improving EYES: Pupils equal. Conjunctiva naz l. HEENT: External appearance of nose and ears normal, oral cavity grossly normal. NECK: JVD not raised; masses not palpable. HEART: First and second heart sounds are normal; no edema. LUNGS: Respiratory rate normal; clear to auscultation. ABDOMEN: Soft, nontender, liver spleen not palpable, no masses palpable. PSYCH: Alert and oriented x3; mood and affect naz l. MUSCULOSKELETAL:No Clubbing/cyanosis;muscles-grossly intact surgery DERMATOLOGICAL: Some scattered bruising-improving INVESTIGATIONS, reviewed in the clinical context: March 25: White count 5.9 hemoglobin 13.3 platelets March 24: Platelets 11 sodium 140 potassium 3.8 creatinine 0.85 Assessment plan: -Severe thrombocytopenia possibly ITP. Present with the initial platelet count of 10. Started on IV dexamethasone 40 mg a day. Being followed by hematology. -Peripheral neuropathy Neurontin 6 7 mg 3 times daily -Rheumatoid arthritis Plaquenil 200 mg twice daily -Hypothyroid Synthroid 150 mcg a day -Restless leg syndrome Requip 0.25 mg nightly -Chronic gout/hyperuricemia Allopurinol to 1 mg twice daily -Chronic clotting disorder being followed by Dr. Abernathy. Type unknown. With a prior history of DVT and PE. Hold Xarelto for now -Morbid obesity BMI 48.1 Weight loss measures Continue Decadron. Repeat platelets. Increase activity Past Medical History Past Medical History: Asthma, Cancer, Deep Vein Thrombosis (DVT), GERD/Reflux, Pulmonary Embolus (PE), Rheumatoid Arthritis (RA), Thyroid Disorder Additional Past Medical History / Comment(s): clotting disorder - does not know name- sees Dr Alvares., DVT 2008 & PE 2009., hx of gout., cervical ca., ibs., hiatal hernia., swelling lower extremities., neuropathy hands, legs and feet- uses cane., RLS., migraines., hx covid Apr 2021., states rash on arms. History of Any Multi-Drug Resistant Organisms: None Reported Past Surgical History: Hysterectomy Additional Past Surgical History / Comment(s): ganglion cyst removed from right wrist, EGD Past Anesthesia/Blood Transfusion Reactions: No Reported Reaction Past Psychological History: No Psychological Hx Reported Smoking Status: Former smoker Past Alcohol Use History: Rare Past Drug Use History: None Reported
[2024-03-26 16:45] LABS: Glucose,Whole Blood 185 mg/dL (70-110)
[2024-03-26 20:07] LABS: Glucose,Whole Blood 181 mg/dL (70-110)
[2024-03-27] MEDS: traMADol 50 MG TAB PO PRN (05:39)
[2024-03-27 06:17] LABS: Glucose,Whole Blood 140 mg/dL (70-110)
[2024-03-27 09:01] LABS: Basophils % (A) 0 %; Eosinophils # (A) 0.1 k/uL (0-0.7); Eosinophils % (A) 0 %; HCT 42.4 % (34.0-46.0); HGB 13.5 gm/dL (11.4-16.0); Lymphocytes # (A) 1.2 k/uL (1.0-4.8); Lymphocytes % (A) 12 %; MCH 30.8 pg (25.0-35.0); MCHC 31.7 g/dL (31.0-37.0); MCV 97.2 fL (80.0-100.0); Mean Platelet Volume 10.3; Monocytes # (A) 0.5 k/uL (0-1.0); Monocytes % (A) 5 %; Neutrophils # (A) 8.3 k/uL (1.3-7.7); Neutrophils % (A) 82 %; RBC 4.36 m/uL (3.80-5.40); RDW 13.5 % (11.5-15.5); WBC 10.2 k/uL (3.8-10.6)
[2024-03-27 09:11] LABS: Platelet Count 59 k/uL (150-450)
[2024-03-27 09:17] VITALS: RESP 17
[2024-03-27 11:20] VITALS: BP 119/72; PULSE 73; TEMP 98.2
[2024-03-27 11:34] LABS: Glucose,Whole Blood 139 mg/dL (70-110)
[2024-03-27] MEDS: bisacodyL 10 MG SUPP RECTAL STA (12:14)
[2024-03-27] MEDS: polyethylene glycoL 3350 17 GM POWD.PACK PO SCH (12:14)
--- NOTE | 2024-03-27 21:40 | P.DS ---
Providers Date of admission: 03/24/24 14:46 Expected date of discharge: 03/27/24 Attending physician: Sang Howe Consults: 03/24/24 14:44 Consult Physician Urgent Consulting Provider: Shannan Alvares Consult Reason/Comments: Thrombocytopenia Do you want consulting provider notified?: Yes Primary care physician: Yang Niño [facility] Course: Chief Complaint: Easy bruising This is a pleasant 53-year-old patient, follows with Dr. Jose Elias Niño. Chronic stable medical conditions include asthma, GERD, rheumatoid arthritis, hypothyroid. Has a clotting disorder for which she follows Dr. Magallon. DVT in 2008 in 2009 with PE. Has been on Xarelto. Gout. Hiatal hernia. Neuropathy. Restless leg syndrome. COVID in April 2021. For about 2 weeks patient been noticing increasing bruising around the body. Different size. No bleeding. Patient does not menstruate. Patient is discovered to have a platelet of 10. Admitted. Started on steroids. at the bedside. No prior history of thrombocytopenia. March 26: Remains on IV Decadron. Platelets 24. Bruising is lightening up. Told to increase activity around the room. Hematology following. Discussed with patient . March 27: Platelets have come up to 59. Bruising much better. No bleeding elsewhere. Patient being discharged a prescription of prednisone per hematology. Will follow-up with Dr. Josh Alvares. Questions answered to the patient and . Social history: Alcohol rarely. No smoking. . Physical examination: VITAL SIGNS: 98.2, 73, 17, 119 x 72, 100% room air GENERAL: Comfortable EYES: Pupils equal. Conjunctiva naz l. HEENT: External appearance of nose and ears normal, oral cavity grossly normal. NECK: JVD not raised; masses not palpable. HEART: First and second heart sounds are normal; no edema. LUNGS: Respiratory rate normal; clear to auscultation. ABDOMEN: Soft, nontender, liver spleen not palpable, no masses palpable. PSYCH: Alert and oriented x3; mood and affect naz l. MUSCULOSKELETAL:No Clubbing/cyanosis;muscles-grossly intact surgery DERMATOLOGICAL: Some scattered bruising-improving INVESTIGATIONS, reviewed in the clinical context: March 27: Platelets 50 diet March 25: White count 5.9 hemoglobin 13.3 platelets March 24: Platelets 11 sodium 140 potassium 3.8 creatinine 0.85 Assessment plan: -Severe thrombocytopenia possibly ITP. initial platelet count of 10. Started on IV dexamethasone 40 mg a day. Discharged on slow prednisone taper. Per hematology. Follow-up with Dr. Josh Alvares -Peripheral neuropathy Neurontin 6 7 mg 3 times daily -Rheumatoid arthritis Plaquenil 200 mg twice daily -Hypothyroid Synthroid 150 mcg a day -Restless leg syndrome Requip 0.25 mg nightly -Chronic gout/hyperuricemia Allopurinol to 1 mg twice daily -Chronic clotting disorder being followed by Dr. Abernathy. Type unknown. With a prior history of DVT and PE. Xarelto resumed -Morbid obesity BMI 48.1 Weight loss measures Disposition: Home Past Medical History Past Medical History: Asthma, Cancer, Deep Vein Thrombosis (DVT), GERD/Reflux, Pulmonary Embolus (PE), Rheumatoid Arthritis (RA), Thyroid Disorder Additional Past Medical History / Comment(s): clotting disorder - does not know name- sees Dr Alvares., DVT 2008 & PE 2009., hx of gout., cervical ca., ibs., hiatal hernia., swelling lower extremities., neuropathy hands, legs and feet- uses cane., RLS., migraines., hx covid Apr 2021., states rash on arms. History of Any Multi-Drug Resistant Organisms: None Reported Past Surgical History: Hysterectomy Additional Past Surgical History / Comment(s): ganglion cyst removed from right wrist, EGD Past Anesthesia/Blood Transfusion Reactions: No Reported Reaction Past Psychological History: No Psychological Hx Reported Smoking Status: Former smoker Past Alcohol Use History: Rare Past Drug Use History: None Reported Plan - Discharge Summary Discharge Rx Participant: No New Discharge Prescriptions: Continue allopurinoL [Zyloprim] 200 mg PO BID Levothyroxine Sodium [Synthroid] 150 mcg PO DAILY Hydroxychloroquine Sulfate [Plaquenil] 200 mg PO BID Fluticasone Nasal [place] [Flonase Nasal [place]] 1 spr EA NOSTRIL DAILY rOPINIRole HCL [Requip] 0.25 mg PO HS Sucralfate [Carafate] 1 gm PO DAILY Montelukast [Singulair] 10 mg PO DAILY Furosemide [Lasix] 40 mg PO DAILY DULoxetine HCL [Cymbalta] 30 mg PO BID SUMAtriptan succinate [Imitrex] 50 mg PO BID PRN PRN Reason: Migraine Headache Rivaroxaban [Xarelto] 15 mg PO HS Acetaminophen Tab [Tylenol] 500 mg PO Q6H PRN PRN Reason: Pain Furosemide [Lasix] 20 mg PO DAILY@1600 Gabapentin 600 mg PO TID Loperamide [Imodium] 2 mg PO QID PRN PRN Reason: Diarrhea methylPREDNISolone Dose Pack [Medrol Dose Pack] 4 mg PO DIRECTED PRN PRN Reason: flare up Dicyclomine [Bentyl] 20 mg PO TID Albuterol Sulfate [Proair Hfa] 1 - 2 puff INHALATION RT-Q6H PRN PRN Reason: Shortness Of Breath Meclizine [Antivert] 25 mg PO QID PRN PRN Reason: Vertigo Pantoprazole [Protonix] 40 mg PO BID Cetirizine HCl [Zyrtec] 10 mg PO DAILY Cholestyramine (with Sugar) [Cholestyramine Packet] 4 gm PO BID PRN PRN Reason: Diarrhea Famotidine [Pepcid] 40 mg PO DAILY traMADol HCl [Ultram] 50 mg PO Q6HR PRN PRN Reason: Pain Indomethacin [Indocin] 50 mg PO TID PRN PRN Reason: gout Discharge Medication List Hydroxychloroquine Sulfate [Plaquenil] 200 mg PO BID 01/30/19 [History] Levothyroxine Sodium [Synthroid] 150 mcg PO DAILY 01/30/19 [History] allopurinoL [Zyloprim] 200 mg PO BID 01/30/19 [History] Fluticasone Nasal [place] [Flonase Nasal [place]] 1 spr EA NOSTRIL DAILY 03/07/20 [History] Albuterol Sulfate [Proair Hfa] 1 - 2 puff INHALATION RT-Q6H PRN 03/23/22 [History] DULoxetine HCL [Cymbalta] 30 mg PO BID 03/23/22 [History] Dicyclomine [Bentyl] 20 mg PO TID 03/23/22 [History] Furosemide [Lasix] 40 mg PO DAILY 03/23/22 [History] Meclizine [Antivert] 25 mg PO QID PRN 03/23/22 [History] Montelukast [Singulair] 10 mg PO DAILY 03/23/22 [History] Pantoprazole [Protonix] 40 mg PO BID 03/23/22 [History] Rivaroxaban [Xarelto] 15 mg PO HS 03/23/22 [History] SUMAtriptan succinate [Imitrex] 50 mg PO BID PRN 03/23/22 [History] Sucralfate [Carafate] 1 gm PO DAILY 03/23/22 [History] rOPINIRole HCL [Requip] 0.25 mg PO HS 03/23/22 [History] Acetaminophen Tab [Tylenol] 500 mg PO Q6H PRN 03/24/24 [History] Cetirizine HCl [Zyrtec] 10 mg PO DAILY 03/24/24 [History] Cholestyramine (with Sugar) [Cholestyramine Packet] 4 gm PO BID PRN 03/24/24 [History] Famotidine [Pepcid] 40 mg PO DAILY 03/24/24 [History] Furosemide [Lasix] 20 mg PO DAILY@1600 03/24/24 [History] Gabapentin 600 mg PO TID 03/24/24 [History] Indomethacin [Indocin] 50 mg PO TID PRN 03/24/24 [History] Loperamide [Imodium] 2 mg PO QID PRN 03/24/24 [History] methylPREDNISolone Dose Pack [Medrol Dose Pack] 4 mg PO DIRECTED PRN 03/24/24 [History] traMADol HCl [Ultram] 50 mg PO Q6HR PRN 03/24/24 [History] Follow up Appointment(s)/Referral(s): Yang Niño MD [Primary Care Provider] - 1-2 days (left message with office for follow up appt) Avery Alvares MD [STAFF PHYSICIAN] - 1 Week Patient Instructions/Handouts: Thrombocytopenia (DC) Discharge Disposition: HOME SELF-CARE
--- NOTE | 2024-03-28 07:25 | P.PN ---
Subjective Progress Note Date: 03/27/24 No acute events. Has mild purpura on BLE. No acute episodes of bleeding. Continues on pulse dose dex. Plts today 59,000 Objective - Vital Signs Vital signs: Vital Signs Temp 98.2 F 03/27/24 11:19 Pulse 73 03/27/24 11:19 Resp 17 03/27/24 11:19 BP 119/72 03/27/24 11:19 Pulse Ox 100 03/27/24 11:19 FiO2 Intake & Output 03/26/24 03/27/24 03/27/24 18:59 06:59 18:59 Intake Total 20 20 10 Balance 20 20 10 Weight 131 kg Intake: IV 20 20 10 Invasive Line 1 20 20 10 Other: Voiding Method Toilet Toilet Toilet # Voids 2 1 - Constitutional General appearance: Present: no acute distress, obese - EENT Eyes: Present: anicteric sclerae, EOMI - Respiratory Details: breathing even and unlabored - Cardiovascular Details: skin warm and dry - Psychiatric Psychiatric: Present: A&O x's 3 - Labs CBC & Chem 7: 03/27/24 08:41 03/24/24 13:07 Labs: Abnormal Lab Results - Last 24 Hours (Table) 03/26/24 03/26/24 03/26/24 Range/Units 11:45 16:39 20:06 Plt Count (150-450) k/uL Neutrophils # (1.3-7.7) k/uL POC Glucose (mg/dL) 113 H 185 H 181 H (70-110) mg/dL 03/27/24 03/27/24 Range/Units 06:14 08:41 Plt Count 59 L D (150-450) k/uL Neutrophils # 8.3 H (1.3-7.7) k/uL POC Glucose (mg/dL) 140 H (70-110) mg/dL Assessment and Plan (1) Thrombocytopenia Status: Acute Priority: High Code(s): D69.6 - THROMBOCYTOPENIA, UNSPECIFIED SNOMED Code(s): 377178558 Plan: #ITP -Initially noted fatigue and malaise approximately 1 week ago followed by development of spontaneous ecchymoses on the bilateral extremities and trunk over the past 4 days -Platelets on outpatient CBC were 10,000 and repeat was 11,000 on admission with no other cytopenias -She denies any recent infection, flares of RA, signs or symptoms concerning for malignancy, or new medications -Clinically, 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 It is unclear if this is idiopathic or possibly related to underlying rheumatoid arthritis. She is on lasix outpatient, which has been known to be associated with drug-induced ITP -Recommend dexamethasone 40 mg IV daily for 4 days with IV PPI for prophylaxis -Do not recommend platelet transfusion unless there is evidence of active bleeding as this will not help raise her platelet count with the platelets undergoing autoimmune consumption -Plts improving, 59,000 -She will need transition to oral prednisone 1 mg/kg daily with prolonged taper 10 mg/week once platelets rise above 20,000 to continue treatment outpatient -Script for prednisone taper sent -Labs draws for CBC recheck ordered, [facility] f/u in 1-2 weeks #DVT of the right lower extremity -Hold Xarelto 15 mg daily while platelets are less than 50,000
== END 2024-03-27 13:00 | disposition home or self-care (01) | DRG 813 ==
LOC: EC 11:33 → 3SCARD 14:46
PROVIDERS: ADMIT Hospitalist; ATTEND Hospitalist
DX: D69.3 Immune thrombocytopenic purpura (principal); G25.81 Restless legs syndrome; E03.9 Hypothyroidism, unspecified; G62.9 Polyneuropathy, unspecified; D68.9 Coagulation defect, unspecified; K21.9 Gastro-esophageal reflux disease without esophagitis; M06.9 Rheumatoid arthritis, unspecified; M10.9 Gout, unspecified; K44.9 Diaphragmatic hernia without obstruction or gangrene; Z86.16 Personal history of COVID-19; D69.6 Thrombocytopenia, unspecified; J45.909 Unspecified asthma, uncomplicated; Z79.01 Long term (current) use of anticoagulants; Z79.890 Hormone replacement therapy; Z79.899 Other long term (current) drug therapy; Z82.49 Family history of ischemic heart disease and other diseases of the circulatory system; Z85.41 Personal history of malignant neoplasm of cervix uteri; Z86.711 Personal history of pulmonary embolism; Z86.718 Personal history of other venous thrombosis and embolism; Z87.891 Personal history of nicotine dependence; Z90.710 Acquired absence of both cervix and uterus; Z82.5 Family history of asthma and other chronic lower respiratory diseases; Z83.3 Family history of diabetes mellitus; Z88.5 Allergy status to narcotic agent
CPT/HCPCS: 36415; 80053; 83735; 85025; 96365; 96366; 96374; 99285